=== PATIENT | male | born 1945 | race Caucasian/White ===

== ENCOUNTER 2017-10-07 09:47 | Emergency (ER) | payer MEDICARE, BC ==
[2017-10-07] MEDS ORDERED: Sodium Chloride 0.9% 10 ML Syringe FLUSH PRN (10:11)
[2017-10-07] MEDS ORDERED: Iopamidol 755 Mg/ML 100 ML Bottle IVPUSH ONE (10:15)
[2017-10-07] MEDS ORDERED: Sodium Chloride 0.9% 100 ML IV SCH (10:15)
[2017-10-07] MEDS: Sodium Chloride 0.9% 10 ML Syringe FLUSH PRN ×2 (10:21→11:29)
--- NOTE | 2017-10-07 12:25 | EDM.PDOC ---
ED HPI GENERAL MEDICAL PROBLEM - General Chief Complaint: Respiratory Problem Stated Complaint: SOB Time Seen by Provider: 10/07/17 09:55 Source of Information: Reports: Patient, Family History Limitations: Reports: No Limitations - History of Present Illness INITIAL COMMENTS - FREE TEXT/NARRATIVE: The patient presents with shortness of breath and palpitations. He says this has been going on for a few weeks. 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 They could not proceed with the surgery. They do have a stent in his stomach and duodenum. He has been having palpitations on and off since he got home and he was seen twice for that. He has been having more shortness of breath lately. He has no fever, chills, cough, chest pain or edema in his legs. He does have ascities. His albumin was low and also his Hgb was low. He ws 9.2 at the clinic and he was 7.1 when he left the hospital. 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 Onset: Gradual Duration: Week(s): Severity: Moderate Improves with: Reports: None Worsens with: Reports: None Associated Symptoms: Reports: Shortness of Breath. Denies: Chest Pain, Cough, Fever/Chills, Headaches, Loss of Appetite, Nausea/Vomiting - Related Data Allergies Allergy/AdvReac Type Severity Reaction Status Date / Time Penicillins Allergy Hives Verified 10/07/17 10:01 Home Meds: Home Meds Atenolol 50 mg PO DAILY 10/07/17 [History] Enoxaparin [Lovenox] 80 mg SQ BID 10/07/17 [History] Ferrous Sulfate [Iron] 325 mg PO DAILY 10/07/17 [History] Furosemide [Lasix] 40 mg PO DAILY 10/07/17 [History] Insulin Degludec [Tresiba Flextouch U-100] 0 unit SQ ASDIRECTED 10/07/17 [ History] Lipase/Protease/Amylase [Sara [place]ES 3,000 Unit] 1 each PO TID 10/07/17 [History] Pantoprazole [ProTONIX] 20 mg PO BID 10/07/17 [History] Sennosides [Senna] 1 tab PO BID 10/07/17 [History] atorvaSTATin [Lipitor] 5 mg PO BEDTIME 10/07/17 [History] Past Medical History HEENT History: Reports: Impaired Vision Cardiovascular History: Reports: High Cholesterol, Hypertension, Other (See Below) Other Cardiovascular History: 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 Respiratory History: Reports: SOB Gastrointestinal History: Reports: GERD, Other (See Below) Other Gastrointestinal History: acites Endocrine/Metabolic History: Reports: Diabetes, Type II Hematologic History: Reports: Anticoagulation Therapy, Other (See Below) Other Hematologic History: current cancer patient Oncologic (Cancer) History: Reports: Pancreatic, Prostate Other Oncologic History: sebacceous adrenal CA - Past Surgical History Musculoskeletal Surgical History: Reports: Hip Replacement Social & Family History - Family History Family Medical History: Noncontributory - Tobacco Use Smoking Status *Q: Never Smoker Second Hand Smoke Exposure: No - Caffeine Use Caffeine Use: Reports: None - Recreational Drug Use Recreational Drug Use: No - Living Situation & Occupation Living situation: Reports: Occupation: Retired ED ROS GENERAL - Review of Systems Review Of Systems: See Below Constitutional: Reports: No Symptoms HEENT: Reports: No Symptoms Respiratory: Reports: Shortness of Breath. Denies: Cough Cardiovascular: Reports: No Symptoms Endocrine: Reports: No Symptoms GI/Abdominal: Reports: Other (Distended abdomen) : Reports: No Symptoms Musculoskeletal: Reports: No Symptoms ED EXAM, GENERAL - Physical Exam Exam: See Below Exam Limited By: No Limitations General Appearance: Alert, No Apparent Distress Ears: Normal External Exam Nose: Normal Inspection Head: Atraumatic, Normocephalic Neck: Normal Inspection Respiratory/Chest: No Respiratory Distress, Decreased Breath Sounds Cardiovascular: Regular Rate, Rhythm, No Edema, No Murmur GI/Abdominal: Soft, Non-Tender, No Organomegaly, No Mass, Other (Distended abdomen with a vertical midline incision with no drainage and redness) EKG INTERPRETATION EKG Date: 10/07/17 Time: 10:10 Rhythm: NSR Rate (Beats/Min): 85 Epes: Normal P-Wave: Present QRS: Normal ST-T: Normal QT: Normal EKG Interpretation Comments: Q waves in the inferior leads Course - Vital Signs Last Recorded V/S: Last Vital Signs Temp 97.8 F 10/07/17 09:49 Pulse 86 10/07/17 10:48 Resp 20 10/07/17 10:48 BP 115/82 10/07/17 10:48 Pulse Ox 99 10/07/17 10:48 - Orders/Labs/Meds Orders: Active Orders 24 hr Category Date Time Status Cardiac Monitoring [RC] . DIRECTED Care 10/07/17 10:11 Active EKG 12 Lead [EKG Documentation Completion] [RC] STAT Care 10/07/17 10:10 Active Peripheral IV Care [RC] . DIRECTED Care 10/07/17 10:11 Active Ang Chest [CT] Stat Exams 10/07/17 11:15 Taken Sodium Chloride 0.9% [Normal Saline] 100 ml Med 10/07/17 10:15 Active IV ASDIRECTED Sodium Chloride 0.9% [Saline Flush] Med 10/07/17 10:11 Active 10 ml FLUSH ASDIRECTED PRN Sodium Chloride 0.9% [Saline Flush] Med 10/07/17 10:15 Active 10 ml FLUSH ONETIME PRN Peripheral IV Insertion Adult [OM.PC] Stat Oth 10/07/17 10:11 Ordered Medication Orders Sodium Chloride (Normal Saline) 100 mls @ 75 mls/hr IV ASDIRECTED AMANDA Last Admin: 10/07/17 11:29 Dose: 75 mls/hr Sodium Chloride (Saline Flush) 10 ml FLUSH ASDIRECTED PRN PRN Reason: Keep Vein Open Last Admin: 10/07/17 11:38 Dose: 10 ml Sodium Chloride (Saline Flush) 10 ml FLUSH ONETIME PRN PRN Reason: IV FLUSH Last Admin: 10/07/17 11:29 Dose: 10 ml Admin: 10/07/17 10:21 Dose: 10 ml Labs: Laboratory Tests 10/07/17 10/07/17 10/07/17 Range/Units 10:15 10:15 10:15 WBC 6.13 (4.23-9.07) K/mm3 RBC 3.38 L (4.63-6.08) M/mm3 Hgb 9.3 L (13.7-17.5) gm/L Hct 29.9 L (40.1-51.0) % MCV 88.5 (79.0-92.2) fl MCH 27.5 (25.7-32.2) pg MCHC 31.1 L (32.2-35.5) g/dl RDW Std Deviation 48.4 H (35.1-43.9) fL Plt Count 374 H (163-337) K/mm3 MPV 7.9 L (9.4-12.3) fl Neut % (Auto) 81.4 H (34.0-67.9) % Lymph % (Auto) 9.5 L (21.8-53.1) % Haines % (Auto) 8.5 (5.3-12.2) % Eos % (Auto) 0.2 L (0.8-7.0) Baso % (Auto) 0.2 (0.1-1.2) % Neut # (Auto) 5.00 (1.78-5.38) K/mm3 Lymph # (Auto) 0.58 L (1.32-3.57) K/mm3 Haines # (Auto) 0.52 (0.30-0.82) K/mm3 Eos # (Auto) 0.01 L (0.04-0.54) K/mm3 Baso # (Auto) 0.01 (0.01-0.08) K/mm3 Manual Slide Review Abnormal smear PT 12.0 (9.5-12.1) SECONDS INR 1.10 APTT 38 H (24-31) SECONDS Sodium 135 L (136-145) mEq/L Potassium 3.8 (3.5-5.1) mEq/L Chloride 100 (98-107) mEq/L Carbon Dioxide 27 (21-32) mEq/L Anion Gap 11.8 (5-15) BUN 10 (7-18) mg/dL Creatinine 0.9 (0.7-1.3) mg/dL Est Cr Clr Drug Dosing 72.83 mL/min Estimated GFR (MDRD) > 60 (>60) mL/min BUN/Creatinine Ratio 11.1 L (14-18) Glucose 125 H (83-115) mg/dL Calcium 8.3 L (8.5-10.1) mg/dL Total Bilirubin 0.6 (0.2-1.0) mg/dL AST 24 (15-37) U/L ALT 26 (16-63) U/L Alkaline Phosphatase 174 H (46-116) U/L Troponin I < 0.017 (0.00-0.056) ng/mL NT-Pro-B Natriuret Pep (0-125) pg/mL Total Protein 5.9 L (6.4-8.2) g/dl Albumin 1.9 L (3.4-5.0) g/dl Globulin 4.0 gm/dL Albumin/Globulin Ratio 0.5 L (1-2) Lipase 90 (73-393) U/L 10/07/17 Range/Units 10:15 WBC (4.23-9.07) K/mm3 RBC (4.63-6.08) M/mm3 Hgb (13.7-17.5) gm/L Hct (40.1-51.0) % MCV (79.0-92.2) fl MCH (25.7-32.2) pg MCHC (32.2-35.5) g/dl RDW Std Deviation (35.1-43.9) fL Plt Count (163-337) K/mm3 MPV (9.4-12.3) fl Neut % (Auto) (34.0-67.9) % Lymph % (Auto) (21.8-53.1) % Haines % (Auto) (5.3-12.2) % Eos % (Auto) (0.8-7.0) Baso % (Auto) (0.1-1.2) % Neut # (Auto) (1.78-5.38) K/mm3 Lymph # (Auto) (1.32-3.57) K/mm3 Haines # (Auto) (0.30-0.82) K/mm3 Eos # (Auto) (0.04-0.54) K/mm3 Baso # (Auto) (0.01-0.08) K/mm3 Manual Slide Review PT (9.5-12.1) SECONDS INR APTT (24-31) SECONDS Sodium (136-145) mEq/L Potassium (3.5-5.1) mEq/L Chloride (98-107) mEq/L Carbon Dioxide (21-32) mEq/L Anion Gap (5-15) BUN (7-18) mg/dL Creatinine (0.7-1.3) mg/dL Est Cr Clr Drug Dosing mL/min Estimated GFR (MDRD) (>60) mL/min BUN/Creatinine Ratio (14-18) Glucose (83-115) mg/dL Calcium (8.5-10.1) mg/dL Total Bilirubin (0.2-1.0) mg/dL AST (15-37) U/L ALT (16-63) U/L Alkaline Phosphatase (46-116) U/L Troponin I (0.00-0.056) ng/mL NT-Pro-B Natriuret Pep 1452 H (0-125) pg/mL Total Protein (6.4-8.2) g/dl Albumin (3.4-5.0) g/dl Globulin gm/dL Albumin/Globulin Ratio (1-2) Lipase (73-393) U/L Meds: Medications Generic Name Dose Route Start Last Admin Trade Name Freq PRN Reason Stop Dose Admin Sodium Chloride 100 mls @ 75 mls/hr 10/07/17 10:15 10/07/17 11:29 Normal Saline IV 75 mls/hr ASDIRECTED AMANDA Administration Sodium Chloride 10 ml 10/07/17 10:11 10/07/17 11:38 Saline Flush FLUSH 10 ml ASDIRECTED PRN Administration Keep Vein Open Sodium Chloride 10 ml 10/07/17 10:15 10/07/17 11:29 Saline Flush FLUSH 10 ml ONETIME PRN Administration IV FLUSH Discontinued Medications Generic Name Dose Route Start Last Admin Trade Name Eva PRN Reason Stop Dose Admin Albumin Human 12.5 gm in 50 mls @ 100 mls/hr 10/07/17 13:41 10/07/17 13:53 Flexbumin 25% IV 10/07/17 14:10 250 mls/hr ONETIME ONE Administration Iopamidol 100 ml 10/07/17 10:15 10/07/17 11:29 Isovue-370 (76%) IVPUSH 10/07/17 10:16 80 ml ONETIME ONE Administration - Re-Assessments/Exams Free Text/Narrative Re-Assessment/Exam: 10/07/17 12:28 I ordered an IV saline lock, EKG, CT angio of his chest and labs. 10/07/17 13:37 His WBC is normal. His Hgb is low at 9.3. That is what it was a few days ago. His platelets were a little elevated at 374. His Na was a little low at 135. His glucose was 125. His Alk Phos was elevated at 174. His troponin was negative. His EKG shows a NSR with no acute changes. His BNP was 1452. His total protein was low at 5.9. His albumin was low at 1.9. His lipase was normal. His CT shows no PE. Small bilateral pleural effusions with bibasilar atelectasis. 2 lateral right middle lobe juxtapleural pulmonary nodules. Moderate to large amount of ascities. Severe atrophy of the body and tail of the pancreas. Difficult to determine the presence or abscence of a pancreatic head mass. Probable parapencreatic adenopathy. Cirrhotic liver. Diffuse thickening of the wall of the stomach. Gastroduodenal stent. 1 X 0.9 cm right adrenal mass. I called Dr Quintanilla and it sounds like he is aware of everything on the CT. I asked if it was okay to give him some albumen. He agreed. He is referring him to Dr Cross. The patient is unable to get back to the [facility]. Departure - Departure Time of Disposition: 14:15 Disposition: Home, Self-Care 01 Condition: Good Clinical Impression: Shortness of breath Ascites Qualifiers: Ascites type: malignant Qualified Code(s): R18.0 - Malignant ascites Pancreatic cancer Qualifiers: Pancreatic malignancy location: head of pancreas Qualified Code(s): C25.0 - Malignant neoplasm of head of pancreas - Discharge Information *PRESCRIPTION DRUG MONITORING PROGRAM REVIEWED*: No *COPY OF PRESCRIPTION DRUG MONITORING REPORT IN PATIENT MAR: No Referrals: Geo Quintanilla MD [Primary Care Provider] - 1 Week Forms: ED Department Discharge Additional Instructions: Continue taking your medications. Please return if you are worse. Try to increase your protein if you can. - My Orders Last 24 Hours: My Active Orders 10/07/17 10:10 EKG 12 Lead [EKG Documentation Completion] [RC] STAT 10/07/17 10:11 Cardiac Monitoring [RC] . DIRECTED Peripheral IV Care [RC] . DIRECTED Sodium Chloride 0.9% [Saline Flush] 10 ml FLUSH ASDIRECTED PRN Peripheral IV Insertion Adult [OM.PC] Stat 10/07/17 10:15 Sodium Chloride 0.9% [Normal Saline] 100 ml IV ASDIRECTED Sodium Chloride 0.9% [Saline Flush] 10 ml FLUSH ONETIME PRN 10/07/17 11:15 Ang Chest [CT] Stat - Assessment/Plan Last 24 Hours: My Active Orders 10/07/17 10:10 EKG 12 Lead [EKG Documentation Completion] [RC] STAT 10/07/17 10:11 Cardiac Monitoring [RC] . DIRECTED Peripheral IV Care [RC] . DIRECTED Sodium Chloride 0.9% [Saline Flush] 10 ml FLUSH ASDIRECTED PRN Peripheral IV Insertion Adult [OM.PC] Stat 10/07/17 10:15 Sodium Chloride 0.9% [Normal Saline] 100 ml IV ASDIRECTED Sodium Chloride 0.9% [Saline Flush] 10 ml FLUSH ONETIME PRN 10/07/17 11:15 Ang Chest [CT] Stat
[2017-10-07] MEDS ORDERED: Albumin 25% 12.5 GM/50 ML BAG IV ONE (13:41)
--- NOTE | 2017-10-08 15:05 | CT ---
CT chest Technique: Multiple axial sections through the chest are obtained. Study performed as a pulmonary angiogram protocol. Findings: Pulmonary arteries are well-opacified. No filling defects are seen to indicate pulmonary embolism. Mediastinum and hilar regions show no adenopathy or mass. No pericardial thickening is seen. Minimal right sided pleural effusion is seen with small left-sided pleural effusion. Diffuse ascites seen within the abdomen with findings of cirrhosis within the liver. Stent appears to be present within the antrum of the stomach. Stomach wall is thickened most likely relating to lack of distention. Slight areas of atelectasis and scarring are seen within both posterior lung bases. Slight areas of pleural thickening are noted within the right lung base. No discrete pulmonary nodule is seen as questioned on preliminary report. Impression: 1. No findings of pulmonary embolism. 2. Ascites is seen. Minimal pleural effusions are noted. 3. Cirrhosis of the liver. 4. Stent within the stomach antrum. 5. Areas of scarring and atelectasis within both lung bases. Slight areas of pleural thickening within the right lung base. 5. Area of the pancreas not well seen on current study without oral contrast. Diagnostic code #3 Agree with preliminary report issued by [facility] (report finalized on 10/07/17, 2:25 PM Central Time)
== END 2017-10-07 14:25 | disposition home or self-care (01) ==
LOC: JD.ED 09:47
DX: R06.02 Shortness of breath (principal); R18.0 Malignant ascites; C25.0 Malignant neoplasm of head of pancreas; K74.60 Unspecified cirrhosis of liver; Z88.0 Allergy status to penicillin; Z79.4 Long term (current) use of insulin; Z79.899 Other long term (current) drug therapy; I10 Essential (primary) hypertension; E11.9 Type 2 diabetes mellitus without complications
CPT/HCPCS: 36415; 71275; 80053; 83690; 83880; 84484; 85025; 85610; 85730; 93005; 96374; 99285; J7030; J7050; P9047; Q9967; 93010

== ENCOUNTER 2017-10-20 08:51 | Inpatient (IN) | payer MEDICARE, BC ==
--- NOTE | 2017-10-20 09:15 | EDM.PDOC ---
ED HPI GENERAL MEDICAL PROBLEM - General Chief Complaint: Syncope Stated Complaint: [facility] Time Seen by Provider: 10/20/17 09:09 Source of Information: Reports: Patient History Limitations: Reports: No Limitations - History of Present Illness INITIAL COMMENTS - FREE TEXT/NARRATIVE: 72-year-old male presents to the ED per ambulance after a syncopal event at home this morning. She states she often gets dizzy in the mornings when he first gets up. He did take his Lasix at 6 this morning. She was dizzy on his way to the bathroom this morning and on his way out of the bathroom had a syncopal event where he actually went down hard to the floor. He struck his left lower lip on the doorknob and then was unresponsive for a very short period of time. His responded to him. The embolus was summoned because he was so weak. Patient is suffering from primary cancer of the pancreas which was opened in the [facility] and then closed because of tumor involvement around the hepatic arteries. He is awaiting consultation with Dr. Meehan later this week to discuss chemotherapy program. Weight continues to fall. He is down from 171 pounds to 155 pounds since starting the Lasix. He obviously has gross ascites. Bolus in the room he has paroxysmal atrial fibrillation with a rapid rate up into the 180s. This occurred on 3 occasions while he was in the room. It does not cause him to have any chest pain but he is aware fluttering in his chest. Orthostatic BPs show a blood pressure 107/66 with a heart rate of 113 lying. Sitting was 136/83 with a heart rate of 92. Standing BP was 74/62 with a heart rate of 161. This was back in atrial fibrillation. The only recent changes to medications or been the addition of Lasix about a month ago. Onset: Today Onset Date: 10/20/17 Onset Time: 08:40 Duration: Minutes: Location: Reports: Face (Injury to his left lower lip.), Upper Extremity, Left ( A few minor contusions to his left elbow area.) Quality: Reports: Other Severity: Moderate (Generalized weakness syncopal event because of dizziness.) Improves with: Reports: Rest (And staying supine.) Worsens with: Reports: Movement (Worsens with standing.) Context: Reports: Other (Patient was walking back out of the bathroom when he had a syncopal event and went down to the floor.). Denies: Activity, Exercise, Lifting, Sick Contact, Trauma Associated Symptoms: Reports: Loss of Appetite, Malaise, Other (Early satiety as he feels very full very quickly.). 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: Other (see below) (None.) - Related Data Allergies Allergy/AdvReac Type Severity Reaction Status Date / Time Penicillins Allergy Hives Verified 10/20/17 17:09 Home Meds: Home Meds Atenolol 50 mg PO DAILY 10/07/17 [History] Enoxaparin [Lovenox] 80 mg SQ BID 10/07/17 [History] Ferrous Sulfate [Iron] 325 mg PO DAILY 10/07/17 [History] Furosemide [Lasix] 40 mg PO DAILY 10/07/17 [History] Insulin Degludec [Tresiba Flextouch U-100] 10 unit SQ ASDIRECTED 10/07/17 [ History] Lipase/Protease/Amylase [Creon DR 3,000 Unit] 1 each PO TID 10/07/17 [History] Pantoprazole [ProTONIX] 20 mg PO BID 10/07/17 [History] Sennosides [Senna] 2 tab PO DAILY 10/07/17 [History] atorvaSTATin [Lipitor] 5 mg PO BEDTIME 10/07/17 [History] Aspirin 81 mg PO DAILY 10/20/17 [History] Past Medical History HEENT History: Reports: Impaired Vision Cardiovascular History: Reports: High Cholesterol, Hypertension, Other (See Below) Other Cardiovascular History: 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 Respiratory History: Reports: SOB Gastrointestinal History: Reports: GERD, Other (See Below) Other Gastrointestinal History: acites Endocrine/Metabolic History: Reports: Diabetes, Type II Hematologic History: Reports: Anticoagulation Therapy, Other (See Below) Other Hematologic History: current cancer patient Oncologic (Cancer) History: Reports: Pancreatic, Prostate Other Oncologic History: sebacceous adrenal CA - Past Surgical History Musculoskeletal Surgical History: Reports: Hip Replacement Social & Family History - Family History Family Medical History: Noncontributory - Caffeine Use Caffeine Use: Reports: None - Living Situation & Occupation Living situation: Reports: Occupation: Retired ED ROS GENERAL - Review of Systems Review Of Systems: See Below Constitutional: Reports: Malaise, Weakness, Fatigue, Decreased Appetite, Weight Loss (Sloss 20 pounds in the last month.). Denies: Fever, Chills HEENT: Reports: Glasses (Contusion to his left lower lip.), Other Respiratory: Reports: Shortness of Breath, Cough. Denies: Wheezing, Pleuritic Chest Pain (On minimal exertion), Sputum, Hemoptysis Cardiovascular: Reports: Blood Pressure Problem, Dyspnea on Exertion (States the edema in his lower extremities has gone away since he started Lasix), Edema ( especially this morning and when he gets up in the morning.), Lightheadedness (Mild the last 4-5 days), Orthopnea. Denies: Chest Pain (Occasional nonproductive cough), Claudication (Seems to go up and down but mostly too low) , Palpitations Endocrine: Reports: Fatigue GI/Abdominal: Reports: Abdominal Pain, Decreased Appetite, Other (Early satiety increased abdominal girth). Denies: Constipation (Right upper quadrant epigastric abdominal pain occasionally radiating through to his back), Diarrhea , Difficulty Swallowing, Distension, Flatus, Hematemesis, Hematochezia, Melena : Reports: Frequency Musculoskeletal: Reports: Back Pain (some mild back pain.) Skin: Reports: No Symptoms Neurological: Reports: No Symptoms Psychiatric: Reports: No Symptoms Hematologic/Lymphatic: Reports: No Symptoms Immunologic: Reports: No Symptoms - Physical Exam Exam: See Below Exam Limited By: No Limitations General Appearance: Alert, WD/WN (He is allergic to rigidity answers all questions quite appropriately.), No Apparent Distress, Other (Weight is quite upset.) Eye Exam: Bilateral Eye: Normal Inspection (No jaundice.) Throat/Mouth: Other (He has a superficial laceration to his left outer lower lip. No injury to the inner aspect of lip and no dental injury no injury to the tongue.) Head Exam: Atraumatic, Normocephalic, Other. No: Scalp Abrasions, Scalp Ecchymosis, Scalp Hematoma, Scalp Tenderness, Facial Abrasions, Facial Ecchymosis, Facial Lacerations, Facial Swelling Neck: Normal Inspection, Supple (Superficial laceration over her left lower lip does not need sutures.), Non-Tender, Full Range of Motion. No: Lymphadenopathy (L), Lymphadenopathy (R) Respiratory/Chest: No Respiratory Distress, No Accessory Muscle Use, Respiratory Distress (Mild tachypnea 20/m on examination), Rales Cardiovascular: Normal Peripheral Pulses, No Edema ( 3 times while in the eye was in the room.), No Murmur, No Rub, Irregularly Irregular (He is going in and out of rapid atrial fibrillation up to 180s.) GI/Abdominal: Normal Bowel Sounds, Other (The abdomen is grossly distended. He has a healing midline wound where he had recent open surgery for possible Whipple's procedure which was closed to due to involvement of hepatic arteries from cancer. Primary cancers in his pancreas. Abdomen is soft. It is covered with ecchymoses from use of Lovenox. It is nontender. There is an induration around the umbilicus to the right side of it.) (Male) Exam: No Hernia Neuro Exam (Abbreviated): Alert, Oriented, CN II-XII Intact, Normal Cognition Back Exam: Normal Inspection, Full Range of Motion. No: CVA Tenderness (L), CVA Tenderness (R) Extremities: Other (Superficial contusions to the left elbow. Range of motion is normal. Is showing muscle atrophy of his limbs.). No: Pedal Edema Psychiatric: Normal Affect, Normal Mood Skin Exam: Warm, Dry, Intact, Other (Slight pallor with a galarza color to him.) EKG INTERPRETATION EKG Date: 10/20/17 Time: 09:17 Rhythm: A-Fib (With rate up to 1 85/m) Rate (Beats/Min): 153 Cope: LAD-Left Cope Deviation (-19) P-Wave: Variable (He does go in and out of sinus rhythm.) QRS: Other (Decreased voltage limb leads.) ST-T: Other (There is a re-pole repolarization abnormality related to rate with slight depression feet 2 to V6 and one in aVL tooth and aVF.) QT: Normal EKG Interpretation Comments: Abnormal ECG Course - Vital Signs Last Recorded V/S: Last Vital Signs Temp 37.1 C 10/20/17 16:00 Pulse 104 H 10/20/17 18:00 Resp 25 H 10/20/17 16:00 BP 107/76 10/20/17 18:00 Pulse Ox 91 L 10/20/17 16:00 Orthostatic Blood Pressure [ 74/62 Standing] Orthostatic Blood Pressure [ 136/83 Sitting] Orthostatic Blood Pressure [ 107/66 Supine] - Orders/Labs/Meds Orders: Active Orders 24 hr Category Date Time Status Diltiazem 125 mg Med 10/20/17 09:30 Active Sodium Chloride 0.9% [Normal Saline] 100 ml IV ASDIRECTED Sodium Chloride 0.9% [Normal Saline] 1,000 ml Med 10/20/17 09:15 Active IV ASDIRECTED Medication Orders Aspirin (Aspirin) 81 mg PO DAILY [facility] Enoxaparin Sodium (Lovenox) 60 mg SUBCUT BID [facility] Ferrous Sulfate (Ferrous Sulfate) 325 mg PO DAILY [facility] Furosemide (Lasix) 40 mg PO DAILY [facility] Diltiazem HCl 125 mg/ Sodium (Chloride) 125 mls @ 10 mls/hr IV ASDIRECTED [facility] Last Admin: 10/20/17 10:07 Dose: 10 mg/hr, 10 mls/hr Sodium Chloride (Normal Saline) 1,000 mls @ 125 mls/hr IV ASDIRECTED [facility] Last Admin: 10/20/17 17:36 Dose: 125 mls/hr Infusion: 10/20/17 17:36 Dose: 125 mls/hr Admin: 10/20/17 09:57 Dose: 125 mls/hr Insulin Human Lispro (Humalog) 0 unit SUBCUT QIDACANDBED [facility]; Protocol Last Admin: 10/20/17 17:27 Dose: Not Given Metoprolol Tartrate (Lopressor) 25 mg PO Q12H [facility] Last Admin: 10/20/17 16:18 Dose: 25 mg Metoprolol Tartrate (Lopressor) 5 mg IVPUSH Q6H PRN PRN Reason: HR>100 Pantoprazole Sodium (Protonix) 40 mg PO DAILY [facility] Lipase/Protease/Amylase [Sara Perez 3, 000 Unit] 1 Each Ptom 1 each PO TID [facility] Potassium Chloride (Potassium Chloride Solution) 60 meq PO TID [facility] Last Admin: 10/20/17 16:18 Dose: 60 meq Senna (Senna) 8.6 mg PO BID [facility] Simvastatin (Zocor) 5 mg PO BEDTIME [facility] Labs: Laboratory Tests 10/20/17 10/20/17 10/20/17 Range/Units 09:17 09:43 09:43 WBC 6.36 (4.23-9.07) K/mm3 RBC 3.64 L (4.63-6.08) M/mm3 Hgb 9.7 L (13.7-17.5) gm/L Hct 31.8 L (40.1-51.0) % MCV 87.4 (79.0-92.2) fl MCH 26.6 (25.7-32.2) pg MCHC 30.5 L (32.2-35.5) g/dl RDW Std Deviation 52.7 H (35.1-43.9) fL Plt Count 281 (163-337) K/mm3 MPV 8.4 L (9.4-12.3) fl Neutrophils % (Manual) 79 H (40-60) % Band Neutrophils % 0 (0-10) % Lymphocytes % (Manual) 17 L (20-40) % Atypical Lymphs % 0 % Monocytes % (Manual) 4 (2-10) % Eosinophils % (Manual) 0 L (0.8-7.0) % Basophils % (Manual) 0 L (0.2-1.2) Platelet Estimate Adequate Polychromasia 1+ slight Hypochromasia 1+ slight Poikilocytosis 1+ slight Anisocytosis 1+ slight RBC Morph Comment Not Reportable PT 11.7 (9.5-12.1) SECONDS INR 1.07 Sodium 140 (136-145) mEq/L Potassium 2.6 L (3.5-5.1) mEq/L Chloride 97 L (98-107) mEq/L Carbon Dioxide 35 H (21-32) mEq/L Anion Gap 10.6 (5-15) BUN 12 (7-18) mg/dL Creatinine 1.1 (0.7-1.3) mg/dL Est Cr Clr Drug Dosing 53.35 mL/min Estimated GFR (MDRD) > 60 (>60) mL/min BUN/Creatinine Ratio 10.9 L (14-18) Glucose 145 H (83-115) mg/dL Calcium 8.2 L (8.5-10.1) mg/dL Magnesium 1.8 (1.8-2.4) mg/dl Total Bilirubin 1.0 (0.2-1.0) mg/dL AST 54 H (15-37) U/L ALT 41 (16-63) U/L Alkaline Phosphatase 183 H (46-116) U/L CK-MB (CK-2) 0.6 (0-3.6) ng/ml Troponin I < 0.017 (0.00-0.056) ng/mL C-Reactive Protein 4.6 H* (<1.0) mg/dL NT-Pro-B Natriuret Pep (0-125) pg/mL Total Protein 6.2 L (6.4-8.2) g/dl Albumin 2.1 L (3.4-5.0) g/dl Globulin 4.1 gm/dL Albumin/Globulin Ratio 0.5 L (1-2) 10/20/17 Range/Units 09:43 WBC (4.23-9.07) K/mm3 RBC (4.63-6.08) M/mm3 Hgb (13.7-17.5) gm/L Hct (40.1-51.0) % MCV (79.0-92.2) fl MCH (25.7-32.2) pg MCHC (32.2-35.5) g/dl RDW Std Deviation (35.1-43.9) fL Plt Count (163-337) K/mm3 MPV (9.4-12.3) fl Neutrophils % (Manual) (40-60) % Band Neutrophils % (0-10) % Lymphocytes % (Manual) (20-40) % Atypical Lymphs % % Monocytes % (Manual) (2-10) % Eosinophils % (Manual) (0.8-7.0) % Basophils % (Manual) (0.2-1.2) Platelet Estimate Polychromasia Hypochromasia Poikilocytosis Anisocytosis RBC Morph Comment PT (9.5-12.1) SECONDS INR Sodium (136-145) mEq/L Potassium (3.5-5.1) mEq/L Chloride (98-107) mEq/L Carbon Dioxide (21-32) mEq/L Anion Gap (5-15) BUN (7-18) mg/dL Creatinine (0.7-1.3) mg/dL Est Cr Clr Drug Dosing mL/min Estimated GFR (MDRD) (>60) mL/min BUN/Creatinine Ratio (14-18) Glucose (83-115) mg/dL Calcium (8.5-10.1) mg/dL Magnesium (1.8-2.4) mg/dl Total Bilirubin (0.2-1.0) mg/dL AST (15-37) U/L ALT (16-63) U/L Alkaline Phosphatase (46-116) U/L CK-MB (CK-2) (0-3.6) ng/ml Troponin I (0.00-0.056) ng/mL C-Reactive Protein (<1.0) mg/dL NT-Pro-B Natriuret Pep 752 H (0-125) pg/mL Total Protein (6.4-8.2) g/dl Albumin (3.4-5.0) g/dl Globulin gm/dL Albumin/Globulin Ratio (1-2) Meds: Medications Generic Name Dose Route Start Last Admin Trade Name Freq PRN Reason Stop Dose Admin Aspirin 81 mg 10/21/17 09:00 Aspirin PO DAILY [facility] Enoxaparin Sodium 60 mg 10/20/17 21:00 Lovenox SUBCUT BID [facility] Ferrous Sulfate 325 mg 10/21/17 09:00 Ferrous Sulfate PO DAILY [facility] Furosemide 40 mg 10/21/17 09:00 Lasix PO DAILY [facility] Diltiazem HCl 125 mg/ Sodium 125 mls @ 10 mls/hr 10/20/17 09:30 10/20/17 10: 07 Chloride IV 10 mg/hr ASDIRECTED [facility] 10 mls/hr Administration 10 MG/HR Sodium Chloride 1,000 mls @ 125 mls/hr 10/20/17 09:15 10/20/17 17:36 Normal Saline IV 125 mls/hr ASDIRECTED [facility] Administration Insulin Human Lispro 0 unit 10/20/17 17:00 10/20/17 17:27 Humalog SUBCUT Not Given QIDACANDBED [facility] Protocol Metoprolol Tartrate 25 mg 10/20/17 15:30 10/20/17 16:18 Lopressor PO 25 mg Q12H [facility] Administration Metoprolol Tartrate 5 mg 10/20/17 15:19 Lopressor IVPUSH Q6H PRN HR>100 Pantoprazole Sodium 40 mg 10/21/17 09:00 Protonix PO DAILY [facility] Lipase/Protease/ 1 each 10/20/17 21:00 Amylase [Sara Perez 3, PO 000 Unit] 1 Each TID [facility] Ptom Potassium Chloride 60 meq 10/20/17 16:00 10/20/17 16:18 Potassium Chloride Solution PO 60 meq TID [facility] Administration Senna 8.6 mg 10/20/17 21:00 Senna PO BID [facility] Simvastatin 5 mg 10/20/17 21:00 Zocor PO BEDTIME [facility] Discontinued Medications Generic Name Dose Route Start Last Admin Trade Name Freq PRN Reason Stop Dose Admin Enoxaparin Sodium 75 mg 10/20/17 12:46 10/20/17 13:48 Lovenox SUBCUT 10/20/17 12:47 75 mg ONETIME ONE Administration Potassium Chloride 10 meq/ 100 mls @ 100 mls/hr 10/20/17 12:45 Premix IV ASDIRECTED [facility] Potassium Chloride 10 meq/ 100 mls @ 100 mls/hr 10/20/17 13:50 Premix IV 10/20/17 17:49 Q1H [facility] Potassium Chloride 10 meq/ 100 mls @ 100 mls/hr 10/20/17 13:52 10/20/17 14:20 Premix IV 10/20/17 14:51 100 mls/hr NOW STA Administration Insulin Glargine 8 units 10/20/17 12:51 10/20/17 13:54 Lantus Solostar SUBCUT 10/20/17 12:52 8 units ONETIME ONE Administration Pantoprazole Sodium 40 mg 10/21/17 12:54 10/20/17 13:49 Protonix PO 10/21/17 12:55 40 mg ONETIME ONE Administration Pantoprazole Sodium 40 mg 10/20/17 13:15 10/20/17 13:53 Protonix PO Not Given DAILY [facility] - Radiology Interpretation Free Text/Narrative:: 72-year-old male presents the ED after a syncopal event this morning. Eos is a bit dizzy when he stands up first thing in the morning. He did take his Lasix at 6 this morning. States he made it to the bathroom although he is quite dizzy. On his way out of the bathroom he expressed Whitman to a syncopal event and he went down to the floor. He struck his left lower lip on the doorknob with superficial lacerations to this area that does not require sutures. He has some minor contusions to his left elbow area but suffered no other bony injuries. Patient has obvious gross ascites from primary pancreatic cancer which was diagnosed over a month ago. He was open and closed at the [facility] because of involvement of the hepatic arteries from pancreatic tumor. He is awaiting consultation with Dr. Meehan oncologist this week at [facility] to discuss chemotherapy options. He is to lose weight. He went in and out of rapid atrial fibrillation in the exam room up to 1 85/m. BP is on average 116 systolic. We'll try low-dose diltiazem at 10 mg per hour. He may well have to go on digoxin to control rate as his blood pressure tends to run very low due to current medications and continued weight loss. He has early satiety as he gets full immediately due to the ascites and pancreatic mass. Routine labs to be done. - Re-Assessments/Exams Free Text/Narrative Re-Assessment/Exam: 10/20/17 12:31 Labs are back. White count 6.36. Differential 79% neutrophils and no bands. Hemoglobin is low at 9.7 with hematocrit of 31.8. Platelet count is 281,000. PT is 11.7 with an INR of 1.07. Sodium is 140. Potassium is low at 2.6. Chloride is 97. Bicarbonate is 35. Anion gap is 10.6. BUN is 12 with a creatinine of 1.1. GFR is greater than 60. Glucose 145 with a calcium of 8.2. Magnesium is 1.8. Total bilirubin is 1.0. AST is 54 with an ALT of 41. Alkaline phosphatase mildly elevated 183. CK-MB fraction is 0.6. Troponin I is less than 0.017. C-reactive protein is elevated at 4.6. BNP is elevated at 752. 10/20/17 13:[address] German integration director hospitalist and she will see the patient in the ED with a view to admission to the ICU because he is continuing on Cardizem drip Seems to the most part kept his proximal atrial fibrillation in control. Problem is how to manage it long-term as his blood pressure remains very low and he is already in significant congestive failure. Departure - Departure Time of Disposition: 14:30 Disposition: Admitted As Inpatient 67 Condition: Poor Clinical Impression: Pancreatic cancer metastasized to liver, Paroxysmal atrial fibrillation with rapid ventricular response, Ascites, malignant, Hypokalemia due to inadequate potassium intake Congestive heart failure Qualifiers: Heart failure type: unspecified Heart failure chronicity: acute Qualified Code( s): I50.9 - Heart failure, unspecified Anemia Qualifiers: Anemia type: unspecified type Qualified Code(s): D64.9 - Anemia, unspecified - Discharge Information *PRESCRIPTION DRUG MONITORING PROGRAM REVIEWED*: Not Applicable *COPY OF PRESCRIPTION DRUG MONITORING REPORT IN PATIENT MAR: Not Applicable - My Orders Last 24 Hours: My Active Orders 10/20/17 09:15 Sodium Chloride 0.9% [Normal Saline] 1,000 ml IV ASDIRECTED 10/20/17 09:30 Diltiazem 125 mg Sodium Chloride 0.9% [Normal Saline] 100 ml IV ASDIRECTED - Assessment/Plan Last 24 Hours: My Active Orders 10/20/17 09:15 Sodium Chloride 0.9% [Normal Saline] 1,000 ml IV ASDIRECTED 10/20/17 09:30 Diltiazem 125 mg Sodium Chloride 0.9% [Normal Saline] 100 ml IV ASDIRECTED
[2017-10-20] MEDS: Sodium Chloride 0.9% 1,000 ML IV SCH ×2 (09:57→17:36)
[2017-10-20] MEDS: Diltiazem 125 MG in Sodium Chloride 0.9% 100 ML IV SCH (10:07)
--- NOTE | 2017-10-20 10:15 | CR ---
Chest: Portable view of the chest was obtained. Comparison: Prior chest x-ray of 09/11/[address] of 10/07/17. Diaphragms are elevated most likely due to poor inspiratory effort or possibly ascites. Right-sided infusion catheter is seen. Heart size and mediastinum are normal. Lungs are clear. Bony structures are grossly intact. Impression: 1. Diaphragms elevated possibly due to poor inspiratory effort or elevated due to ascites. 2. Nothing acute is otherwise seen on portable chest x-ray. Diagnostic code #2
[2017-10-20] MEDS ORDERED: Potassium Chloride 10 MEQ in Premix Bag 1 BAG IV SCH ×2 (12:45→13:50)
[2017-10-20] MEDS ORDERED: Enoxaparin 80 MG/0.8 ML Syringe SUBCUT ONE (12:46)
[2017-10-20] MEDS ORDERED: Insulin Glargine,Human Rec. Analog 100 Units/ML 3 ML Pen SUBCUT ONE (12:51)
[2017-10-20] MEDS ORDERED: Pantoprazole 40 MG Tab.CR PO SCH (13:15)
[2017-10-20] MEDS ORDERED: Potassium Chloride 10 MEQ in Premix Bag 1 BAG IV STA (13:52)
--- NOTE | 2017-10-20 15:12 | PCM.HP ---
H&P History of Present Illness - General Date of Service: 10/20/17 Admit Problem/Dx: Admission Diagnosis/Problem Admission Diagnosis/Problem Hypokalemia Source of Information: Patient, Provider History Limitations: Reports: No Limitations - History of Present Illness Initial Comments - Free Text/Narative: 72 year old male with symptomatic A fib with RVR, hypotensive, dizzy with subsequent syncopal episode presents. This is associated with dehydration, weight loss resulting from loss of appetite. He has newly diagnosed pancreatic cancer. He had been seen at the [facility] recently. A clinic visit has been scheduled with Dr Meehan. 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 He is on Lovenox which has required adjustment of his home dose as a result of weight loss. The patient has been on Lasix for control of edema/ascites. he has not been on a potassium replacement. He presents with hypokalemia and requires aggressive replacement. Onset of Symptoms: Reports: Sudden Symptom Onset Date: 10/16/17 Duration of Symptoms: Reports: Day(s):, Getting Worse Location: Reports: Generalized Improves with: Reports: Medication Worsens with: Reports: Movement Associated Symptoms: Reports: Shortness of Breath, Syncope, Weakness - Related Data Allergies/Adverse Reactions: Allergies Allergy/AdvReac Type Severity Reaction Status Date / Time Penicillins Allergy Hives Verified 10/20/17 17:09 Home Medications: Home Meds Atenolol 50 mg PO DAILY 10/07/17 [History] Enoxaparin [Lovenox] 80 mg SQ BID 10/07/17 [History] Ferrous Sulfate [Iron] 325 mg PO DAILY 10/07/17 [History] Furosemide [Lasix] 40 mg PO DAILY 10/07/17 [History] Insulin Degludec [Tresiba Flextouch U-100] 10 unit SQ ASDIRECTED 10/07/17 [ History] Lipase/Protease/Amylase [Sara [place]ES 3,000 Unit] 1 each PO TID 10/07/17 [History] Pantoprazole [ProTONIX] 20 mg PO BID 10/07/17 [History] Sennosides [Senna] 2 tab PO DAILY 10/07/17 [History] atorvaSTATin [Lipitor] 5 mg PO BEDTIME 10/07/17 [History] Aspirin 81 mg PO DAILY 10/20/17 [History] Past Medical History HEENT History: Reports: Impaired Vision Cardiovascular History: Reports: High Cholesterol, Hypertension, Other (See Below) Other Cardiovascular History: 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 Respiratory History: Reports: SOB Gastrointestinal History: Reports: GERD, Other (See Below) Other Gastrointestinal History: acites Endocrine/Metabolic History: Reports: Diabetes, Type II Hematologic History: Reports: Anticoagulation Therapy, Other (See Below) Other Hematologic History: current cancer patient Oncologic (Cancer) History: Reports: Pancreatic, Prostate Other Oncologic History: sebacceous adrenal CA - Past Surgical History Musculoskeletal Surgical History: Reports: Hip Replacement Social & Family History - Family History Family Medical History: Noncontributory - Tobacco Use Smoking Status *Q: Former Smoker Used Tobacco, but Quit: Yes Month/Year Tobacco Last Used: 02/1991 - Caffeine Use Caffeine Use: Reports: None - Recreational Drug Use Recreational Drug Use: No - Living Situation & Occupation Living situation: Reports: Occupation: Retired H&P Review of Systems - Review of Systems: Review Of Systems: See Below General: Reports: Malaise, Weakness, Fatigue, Decreased Appetite, Weight Loss HEENT: Reports: No Symptoms Pulmonary: Reports: Shortness of Breath Cardiovascular: Reports: Palpitations, Lightheadedness, Syncope Gastrointestinal: Reports: No Symptoms Genitourinary: Reports: No Symptoms Musculoskeletal: Reports: No Symptoms Skin: Reports: No Symptoms Psychiatric: Reports: No Symptoms Neurological: Reports: No Symptoms Hematologic/Lymphatic: Reports: No Symptoms Immunologic: Reports: No Symptoms Exam - Exam Exam: See Below - Vital Signs Vital Signs: Last Vital Signs Temp 37.0 C 10/20/17 09:00 Pulse 177 H 10/20/17 10:10 Resp 18 10/20/17 09:00 BP 113/89 10/20/17 10:10 Pulse Ox 96 10/20/17 09:00 Orthostatic Blood Pressure [ 74/62 Standing] Orthostatic Blood Pressure [ 136/83 Sitting] Orthostatic Blood Pressure [ 107/66 Supine] Weight: 61.235 kg - Exam Quality Assessment: Supplemental Oxygen General: Cooperative HEENT: EOMI, Nares Patent, Normal Nasal Septum, Pupils Equal, Pupils Reactive, PERRLA Neck: Trachea Midline Lungs: Normal Respiratory Effort Cardiovascular: Regular Rate, Irregular Rhythm, Tachycardia GI/Abdominal Exam: Normal Bowel Sounds, Soft, Non-Tender, No Organomegaly, No Distention (Male) Exam: Deferred Rectal (Males) Exam: Deferred Back Exam: Normal Inspection Extremities: Normal Inspection, Non-Tender, Normal Capillary Refill - Patient Data Lab Results Last 24 hrs: Laboratory Results - last 24 hr 10/20/17 10/20/17 10/20/17 Range/Units 09:17 09:43 09:43 WBC 6.36 (4.23-9.07) K/mm3 RBC 3.64 L (4.63-6.08) M/mm3 Hgb 9.7 L (13.7-17.5) gm/L Hct 31.8 L (40.1-51.0) % MCV 87.4 (79.0-92.2) fl MCH 26.6 (25.7-32.2) pg MCHC 30.5 L (32.2-35.5) g/dl RDW Std Deviation 52.7 H (35.1-43.9) fL Plt Count 281 (163-337) K/mm3 MPV 8.4 L (9.4-12.3) fl Neutrophils % (Manual) 79 H (40-60) % Band Neutrophils % 0 (0-10) % Lymphocytes % (Manual) 17 L (20-40) % Atypical Lymphs % 0 % Monocytes % (Manual) 4 (2-10) % Eosinophils % (Manual) 0 L (0.8-7.0) % Basophils % (Manual) 0 L (0.2-1.2) Platelet Estimate Adequate Polychromasia 1+ slight Hypochromasia 1+ slight Poikilocytosis 1+ slight Anisocytosis 1+ slight RBC Morph Comment Not Reportable PT 11.7 (9.5-12.1) SECONDS INR 1.07 Sodium 140 (136-145) mEq/L Potassium 2.6 L (3.5-5.1) mEq/L Chloride 97 L (98-107) mEq/L Carbon Dioxide 35 H (21-32) mEq/L Anion Gap 10.6 (5-15) BUN 12 (7-18) mg/dL Creatinine 1.1 (0.7-1.3) mg/dL Est Cr Clr Drug Dosing 53.35 mL/min Estimated GFR (MDRD) > 60 (>60) mL/min BUN/Creatinine Ratio 10.9 L (14-18) Glucose 145 H (83-115) mg/dL Calcium 8.2 L (8.5-10.1) mg/dL Magnesium 1.8 (1.8-2.4) mg/dl Total Bilirubin 1.0 (0.2-1.0) mg/dL AST 54 H (15-37) U/L ALT 41 (16-63) U/L Alkaline Phosphatase 183 H (46-116) U/L CK-MB (CK-2) 0.6 (0-3.6) ng/ml Troponin I < 0.017 (0.00-0.056) ng/mL C-Reactive Protein 4.6 H* (<1.0) mg/dL NT-Pro-B Natriuret Pep (0-125) pg/mL Total Protein 6.2 L (6.4-8.2) g/dl Albumin 2.1 L (3.4-5.0) g/dl Globulin 4.1 gm/dL Albumin/Globulin Ratio 0.5 L (1-2) 10/20/17 Range/Units 09:43 WBC (4.23-9.07) K/mm3 RBC (4.63-6.08) M/mm3 Hgb (13.7-17.5) gm/L Hct (40.1-51.0) % MCV (79.0-92.2) fl MCH (25.7-32.2) pg MCHC (32.2-35.5) g/dl RDW Std Deviation (35.1-43.9) fL Plt Count (163-337) K/mm3 MPV (9.4-12.3) fl Neutrophils % (Manual) (40-60) % Band Neutrophils % (0-10) % Lymphocytes % (Manual) (20-40) % Atypical Lymphs % % Monocytes % (Manual) (2-10) % Eosinophils % (Manual) (0.8-7.0) % Basophils % (Manual) (0.2-1.2) Platelet Estimate Polychromasia Hypochromasia Poikilocytosis Anisocytosis RBC Morph Comment PT (9.5-12.1) SECONDS INR Sodium (136-145) mEq/L Potassium (3.5-5.1) mEq/L Chloride (98-107) mEq/L Carbon Dioxide (21-32) mEq/L Anion Gap (5-15) BUN (7-18) mg/dL Creatinine (0.7-1.3) mg/dL Est Cr Clr Drug Dosing mL/min Estimated GFR (MDRD) (>60) mL/min BUN/Creatinine Ratio (14-18) Glucose (83-115) mg/dL Calcium (8.5-10.1) mg/dL Magnesium (1.8-2.4) mg/dl Total Bilirubin (0.2-1.0) mg/dL AST (15-37) U/L ALT (16-63) U/L Alkaline Phosphatase (46-116) U/L CK-MB (CK-2) (0-3.6) ng/ml Troponin I (0.00-0.056) ng/mL C-Reactive Protein (<1.0) mg/dL NT-Pro-B Natriuret Pep 752 H (0-125) pg/mL Total Protein (6.4-8.2) g/dl Albumin (3.4-5.0) g/dl Globulin gm/dL Albumin/Globulin Ratio (1-2) Result Diagrams: 10/20/17 09:43 10/20/17 09:43 - Problem List (1) Atrial fibrillation with RVR SNOMED Code(s): 451502208449192 ICD Code: I48.91 - UNSPECIFIED ATRIAL FIBRILLATION Status: Acute Current Visit: Yes (2) Anemia SNOMED Code(s): 175476721 ICD Code: D64.9 - ANEMIA, UNSPECIFIED Status: Acute Current Visit: No Qualifiers: Anemia type: unspecified type Qualified Code(s): D64.9 - Anemia, unspecified (3) Ascites SNOMED Code(s): 565015484 ICD Code: R18.8 - OTHER ASCITES Status: Acute Current Visit: No Qualifiers: Ascites type: malignant Qualified Code(s): R18.0 - Malignant ascites (4) Dizziness SNOMED Code(s): 253353059, 005866024 ICD Code: R42 - DIZZINESS AND GIDDINESS Status: Acute Current Visit: No (5) Hypokalemia due to inadequate potassium intake SNOMED Code(s): 97782895 ICD Code: E87.6 - HYPOKALEMIA Status: Acute Current Visit: No (6) Hypomagnesemia SNOMED Code(s): 955324979 ICD Code: E83.42 - HYPOMAGNESEMIA Status: Acute Current Visit: No (7) Intermittent palpitations SNOMED Code(s): 292370137 ICD Code: R00.2 - PALPITATIONS Status: Acute Current Visit: No (8) Pancreatic cancer SNOMED Code(s): 456429474 ICD Code: C25.9 - MALIGNANT NEOPLASM OF PANCREAS, UNSPECIFIED Status: Acute Current Visit: No Qualifiers: Pancreatic malignancy location: head of pancreas Qualified Code(s): C25.0 - Malignant neoplasm of head of pancreas (9) Shortness of breath SNOMED Code(s): 962194212 ICD Code: R06.02 - SHORTNESS OF BREATH Status: Acute Current Visit: No Problem List Initiated/Reviewed/Updated: Yes Orders Last 24hrs: Active Orders 24 hr Category Date Time Status Patient Status [ADT] Routine ADT 10/20/17 14:34 Active EKG Documentation Completion [RC] STAT Care 10/20/17 09:17 Active Diltiazem 125 mg Med 10/20/17 09:30 Active Sodium Chloride 0.9% [Normal Saline] 100 ml IV ASDIRECTED Pantoprazole [ProTONIX] Med 10/20/17 13:15 Active 40 mg PO DAILY Pantoprazole [ProTONIX] Med 10/21/17 12:54 Once 40 mg PO ONETIME ONE Sodium Chloride 0.9% [Normal Saline] 1,000 ml Med 10/20/17 09:15 Active IV ASDIRECTED Medication Orders Diltiazem HCl 125 mg/ Sodium (Chloride) 125 mls @ 10 mls/hr IV ASDIRECTED AMANDA Last Admin: 10/20/17 10:07 Dose: 10 mg/hr, 10 mls/hr Sodium Chloride (Normal Saline) 1,000 mls @ 125 mls/hr IV ASDIRECTED AMANDA Last Admin: 10/20/17 09:57 Dose: 125 mls/hr Pantoprazole Sodium (Protonix) 40 mg PO ONETIME ONE Stop: 10/21/17 12:55 Last Admin: 10/20/17 13:49 Dose: 40 mg Pantoprazole Sodium (Protonix) 40 mg PO DAILY [facility] Last Admin: 10/20/17 13:53 Dose: Not Given Assessment/Plan Comment:: Impression: A Fib with RVR Syncopal Dehydration Anemia Pancreatic cancer Portal vein thrombus on Lovenox Chronic HLD HTN Diabetes mellitus type 2 Prostate cancer GERD Plan: ICU Cardizem gtt BB therapy Continue Lovenox Ischemic protocol 2 D echo Holter monitor at DC DVT/GI prophylaxis Full code
[2017-10-20] MEDS ORDERED: Metoprolol Tartrate 5 MG/5 ML SDV IVPUSH PRN (15:19)
[2017-10-20] MEDS: Metoprolol Tartrate 25 MG Tab PO SCH (16:18)
[2017-10-20] MEDS: Potassium Chloride 10% 20 MEQ/15 ML Soln 15 ML UD Cup PO SCH ×2 (16:18→20:48)
[2017-10-20] MEDS: Insulin Lispro 100 Unit/ML 3 ML KwikPen SUBCUT SCH ×2 (17:27→22:20)
[2017-10-20] MEDS: Simvastatin 10 MG Tab PO SCH (20:48)
[2017-10-20] MEDS: Enoxaparin 60 MG/0.6 ML Syringe SUBCUT SCH (20:48)
[2017-10-20] MEDS: PROTEASE PO SCH (20:49)
[2017-10-20] MEDS: Sennosides 8.6 MG Tab PO SCH (20:49)
[2017-10-20] MEDS: LIPASE PO SCH (20:49)
[2017-10-20] MEDS: AMYLASE PO SCH (20:49)
[2017-10-21] MEDS: Diltiazem 125 MG in Sodium Chloride 0.9% 100 ML IV SCH (00:54)
[2017-10-21] MEDS: Sodium Chloride 0.9% 1,000 ML IV SCH (00:55)
[2017-10-21] MEDS: Metoprolol Tartrate 25 MG Tab PO SCH ×4 (04:49→20:54)
[2017-10-21] MEDS: Insulin Lispro 100 Unit/ML 3 ML KwikPen SUBCUT SCH ×4 (06:06→21:18)
--- NOTE | 2017-10-21 08:43 | CR ---
Chest: Two views of the chest were obtained. Comparison: Prior chest x-ray of 10/20/17 Minimal pleural effusions are seen on both sides. Right-sided infusion catheter is seen. Heart size is normal. Tortuous thoracic aorta is seen. Lungs otherwise are clear. Surgical clips are noted within the abdomen. Stent also noted within the upper abdomen. Impression: 1. Minimal bilateral pleural effusions. 2. Other incidental findings. Diagnostic code #3
[2017-10-21] MEDS: Enoxaparin 60 MG/0.6 ML Syringe SUBCUT SCH ×2 (11:14→20:58)
[2017-10-21] MEDS: Potassium Chloride 10% 20 MEQ/15 ML Soln 15 ML UD Cup PO SCH ×3 (11:14→20:51)
[2017-10-21] MEDS: Ferrous Sulfate 325 MG Tab PO SCH (11:15)
[2017-10-21] MEDS: Aspirin 81 MG Tab.Chew PO SCH (11:16)
[2017-10-21] MEDS: Furosemide 20 MG Tab PO SCH (11:16)
[2017-10-21] MEDS: Sennosides 8.6 MG Tab PO SCH ×2 (11:17→20:53)
[2017-10-21] MEDS: Pantoprazole 40 MG Tab.CR PO SCH (11:17)
[2017-10-21] MEDS ORDERED: CREON 12000 UNIT PO PRN (11:44)
[2017-10-21] MEDS: AMYLASE PO SCH ×2 (12:21→17:41)
[2017-10-21] MEDS: LIPASE PO SCH ×2 (12:21→17:41)
[2017-10-21] MEDS: PROTEASE PO SCH ×2 (12:21→17:41)
[2017-10-21] MEDS ORDERED: Pantoprazole 40 MG Tab.CR PO ONE (12:54)
--- NOTE | 2017-10-21 13:29 | PCM.PN ---
- General Info Date of Service: 10/21/17 Admission Dx/Problem (Free Text): Admission Diagnosis/Problem Admission Diagnosis/Problem Hypokalemia Subjective Update: Follow Up Functional Status: Reports: Pain Controlled, Tolerating Diet, Ambulating, Urinating. Denies: New Symptoms - Review of Systems General: Denies: Fever, Weakness, Fatigue, Malaise, Chills HEENT: Reports: No Symptoms Pulmonary: Denies: Shortness of Breath Cardiovascular: Denies: Chest Pain, Palpitations, Dyspnea on Exertion, Lightheadedness Gastrointestinal: Denies: Abdominal Pain, Nausea, Vomiting Genitourinary: Reports: No Symptoms Musculoskeletal: Reports: No Symptoms Skin: Reports: No Symptoms Neurological: Denies: Confusion, Difficulty Walking, Weakness, Gait Disturbance Psychiatric: Denies: Depression, Anxiety, Agitation, Hallucinations Systems Review Comment:: No overnight or acute issues. His heart rate is now fully controlled. He has no complaints. His electrolytes have improved but still low. His Hgb level dropped to 8.1. No report or active bleeding or rectal bleed. - Patient Data Vitals - Most Recent: Last Vital Signs Temp 36.7 C 10/21/17 12:00 Pulse 90 10/21/17 12:00 Resp 15 10/21/17 12:00 BP 136/94 H 10/21/17 12:00 Pulse Ox 95 10/21/17 12:00 Orthostatic Blood Pressure [ 74/62 Standing] Orthostatic Blood Pressure [ 136/83 Sitting] Orthostatic Blood Pressure [ 107/66 Supine] Weight - Most Recent: 61.235 kg I&O - Last 24 Hours: Intake & Output 10/20/17 10/21/17 10/21/17 22:59 06:59 14:59 Intake Total 180 2091 0 Output Total 150 Balance 30 2091 0 Lab Results Last 24 Hours: Laboratory Results - last 24 hr 10/20/17 10/20/17 10/21/17 Range/Units 17:23 22:16 04:50 WBC 4.69 (4.23-9.07) K/mm3 RBC 3.10 L (4.63-6.08) M/mm3 Hgb 8.1 L (13.7-17.5) gm/L Hct 27.6 L (40.1-51.0) % MCV 89.0 (79.0-92.2) fl MCH 26.1 (25.7-32.2) pg MCHC 29.3 L (32.2-35.5) g/dl RDW Std Deviation 54.6 H (35.1-43.9) fL Plt Count 205 (163-337) K/mm3 MPV 8.8 L (9.4-12.3) fl Neut % (Auto) 66.7 (34.0-67.9) % Lymph % (Auto) 22.0 (21.8-53.1) % [place] % (Auto) 10.0 (5.3-12.2) % Eos % (Auto) 0.9 (0.8-7.0) Baso % (Auto) 0.4 (0.1-1.2) % Neut # (Auto) 3.13 (1.78-5.38) K/mm3 Lymph # (Auto) 1.03 L (1.32-3.57) K/mm3 [place] # (Auto) 0.47 (0.30-0.82) K/mm3 Eos # (Auto) 0.04 (0.04-0.54) K/mm3 Baso # (Auto) 0.02 (0.01-0.08) K/mm3 Manual Slide Review Abnormal smear Sodium (136-145) mEq/L Potassium (3.5-5.1) mEq/L Chloride (98-107) mEq/L Carbon Dioxide (21-32) mEq/L Anion Gap (5-15) BUN (7-18) mg/dL Creatinine (0.7-1.3) mg/dL Est Cr Clr Drug Dosing mL/min Estimated GFR (MDRD) (>60) mL/min BUN/Creatinine Ratio (14-18) Glucose (83-115) mg/dL POC Glucose 142 H 177 H (83-110) mg/dL Calcium (8.5-10.1) mg/dL Magnesium (1.8-2.4) mg/dl Troponin I (0.00-0.056) ng/mL C-Reactive Protein (<1.0) mg/dL 10/21/17 10/21/17 10/21/17 Range/Units 04:50 06:00 12:23 WBC (4.23-9.07) K/mm3 RBC (4.63-6.08) M/mm3 Hgb (13.7-17.5) gm/L Hct (40.1-51.0) % MCV (79.0-92.2) fl MCH (25.7-32.2) pg MCHC (32.2-35.5) g/dl RDW Std Deviation (35.1-43.9) fL Plt Count (163-337) K/mm3 MPV (9.4-12.3) fl Neut % (Auto) (34.0-67.9) % Lymph % (Auto) (21.8-53.1) % [place] % (Auto) (5.3-12.2) % Eos % (Auto) (0.8-7.0) Baso % (Auto) (0.1-1.2) % Neut # (Auto) (1.78-5.38) K/mm3 Lymph # (Auto) (1.32-3.57) K/mm3 [place] # (Auto) (0.30-0.82) K/mm3 Eos # (Auto) (0.04-0.54) K/mm3 Baso # (Auto) (0.01-0.08) K/mm3 Manual Slide Review Sodium 141 (136-145) mEq/L Potassium 3.4 L (3.5-5.1) mEq/L Chloride 104 (98-107) mEq/L Carbon Dioxide 33 H (21-32) mEq/L Anion Gap 7.4 (5-15) BUN 14 (7-18) mg/dL Creatinine 1.0 (0.7-1.3) mg/dL Est Cr Clr Drug Dosing 58.68 mL/min Estimated GFR (MDRD) > 60 (>60) mL/min BUN/Creatinine Ratio 14.0 (14-18) Glucose 119 H (83-115) mg/dL POC Glucose 119 H 150 H (83-110) mg/dL Calcium 7.6 L (8.5-10.1) mg/dL Magnesium 1.7 L (1.8-2.4) mg/dl Troponin I 0.034 (0.00-0.056) ng/mL C-Reactive Protein 4.2 H* (<1.0) mg/dL Med Orders - Current: Current Medications Aspirin (Aspirin) 81 mg PO DAILY [facility]AN[facility] Last Admin: 10/21/17 11:16 Dose: 81 mg Enoxaparin Sodium (Lovenox) 60 mg SUBCUT BID [facility] Last Admin: 10/21/17 11:14 Dose: 60 mg Ferrous Sulfate (Ferrous Sulfate) 325 mg PO DAILY [facility] Last Admin: 10/21/17 11:15 Dose: 325 mg Furosemide (Lasix) 40 mg PO DAILY [facility] Last Admin: 10/21/17 11:16 Dose: 40 mg Sodium Chloride (Normal Saline) 1,000 mls @ 125 mls/hr IV ASDIRECTED [facility] Last Admin: 10/21/17 00:55 Dose: 125 mls/hr Insulin Human Lispro (Humalog) 0 unit SUBCUT QIDACANDBED [facility]; Protocol Last Admin: 10/21/17 12:46 Dose: 1 unit Metoprolol Tartrate (Lopressor) 5 mg IVPUSH Q6H PRN PRN Reason: HR>100 Metoprolol Tartrate (Lopressor) 25 mg PO TID [facility] Last Admin: 10/21/17 11:18 Dose: 25 mg Pantoprazole Sodium (Protonix) 40 mg PO DAILY [facility] Last Admin: 10/21/17 11:17 Dose: 40 mg Lipase/Protease/Amylase [Creon 12, 000 Unit] Ptom 0 each PO TIDMEALS [facility] Creon 15465 Unit (Caps Ptom) 0 each PO DAILY PRN PRN Reason: SNACK Potassium Chloride (Potassium Chloride Solution) 60 meq PO TID [facility] Last Admin: 10/21/17 11:14 Dose: 60 meq Senna (Senna) 8.6 mg PO BID [facility] Last Admin: 10/21/17 11:17 Dose: 8.6 mg Simvastatin (Zocor) 5 mg PO BEDTIME [facility] Last Admin: 10/20/17 20:48 Dose: 5 mg Discontinued Medications Enoxaparin Sodium (Lovenox) 75 mg SUBCUT ONETIME ONE Stop: 10/20/17 12:47 Last Admin: 10/20/17 13:48 Dose: 75 mg Diltiazem HCl 125 mg/ Sodium (Chloride) 125 mls @ 10 mls/hr IV ASDIRECTED [facility] Last Admin: 10/21/17 00:54 Dose: 10 mg/hr, 10 mls/hr Potassium Chloride 10 meq/ (Premix) 100 mls @ 100 mls/hr IV ASDIRECTED [facility] Potassium Chloride 10 meq/ (Premix) 100 mls @ 100 mls/hr IV Q1H [facility]ANDA Stop: 10/20/17 17:49 Last Admin: 10/20/17 20:47 Dose: Not Given Potassium Chloride 10 meq/ (Premix) 100 mls @ 100 mls/hr IV NOW STA Stop: 10/20/17 14:51 Last Admin: 10/20/17 14:20 Dose: 100 mls/hr Insulin Glargine (Lantus Solostar) 8 units SUBCUT ONETIME ONE Stop: 10/20/17 12:52 Last Admin: 10/20/17 13:54 Dose: 8 units Metoprolol Tartrate (Lopressor) 25 mg PO Q12H [facility] Last Admin: 10/21/17 04:49 Dose: 25 mg Pantoprazole Sodium (Protonix) 40 mg PO ONETIME ONE Stop: 10/21/17 12:55 Last Admin: 10/20/17 13:49 Dose: 40 mg Pantoprazole Sodium (Protonix) 40 mg PO DAILY [facility] Last Admin: 10/20/17 13:53 Dose: Not Given Lipase/Protease/Amylase [Sara Perez 3, 000 Unit] 1 Each Ptom 1 each PO TID [facility] Last Admin: 10/21/17 12:21 Dose: 1 each - Exam Quality Assessment: No: Supplemental Oxygen General: Alert, Oriented, Cooperative, No Acute Distress, Mild Distress HEENT: Pupils Equal, Pupils Reactive, EOMI, Mucous Membr. Moist/[place] Neck: Supple, Trachea Midline, No JVD, No Thyromegaly Lungs: Clear to Auscultation, Normal Respiratory Effort Cardiovascular: No Murmurs, Irregular Rhythm GI/Abdominal Exam: Normal Bowel Sounds, Soft, Non-Tender, No Organomegaly, No Abnormal Bruit, No Mass, Distended, Other. No: Guarding (abdominal scars), Rigid, Rebound (Male) Exam: Deferred Back Exam: Normal Inspection, Decreased Range of Motion Extremities: Normal Inspection, Normal Range of Motion, Non-Tender, No Pedal Edema, Normal Capillary Refill Peripheral Pulses: 2+: Dorsalis Pedis (L), Dorsalis Pedis (R) Skin: Warm, Dry, Intact Neurological: No New Focal Deficit Psy/Mental Status: Alert, Normal Affect, Normal Mood - Problem List Review Problem List Initiated/Reviewed/Updated: Yes - My Orders Last 24 Hours: My Active Orders 10/21/17 11:44 Patient's Own Medication [Ptom] 0 each PO DAILY PRN - Plan Plan:: Assessment/Plan: Acute: S/p A Fib with RVR - HR in the 80s and off drip - HR now controlled with Metoprolol 25 mg po TID - Lovenox SubQ for stroke prophylaxis S/p Syncopal - 2/2 Above - CXR benign - 2D echo pending S/p Dehydration S/p Orthostatic Hypotension - 2/2 Volume Depleted - With the following BPs: Standing 74/62 mmHg, Sitting 136/83 mmHg and Supine 107/66 mmHg Anemia - New vs Chronic - Hgb 9.6 no baseline comparison - He is 8.1 today - SubQ Lovenox for hx/o blood clot - No reports of active bleeding or rectal bleed - Guaiac or stool test - Monitor Pancreatic Cancer - S/p Resection - Being followed by [facility] - Has appointment to see Dr. Cross in AM at 1300 Portal Vein Thrombus - Likely 2/2 Underlying Malignancy - Continue Lovenox Sub E-lytes Abnormality - K 2.6--> 3.4 - Mg 1.7 - 2/2 Duiresis and inadequate intake - Replete and monitor Chronic: HLD HTN Diabetes mellitus type 2 Prostate cancer GERD Plan: He is clinically stable Transfer to [facility] with Tele Continue Lovenox Ischemic protocol Holter monitor at [place] DVT/GI prophylaxis Ambulated as tolerated Resume BB home dose in AM Full code Possible d/c in AM. Met at bedside with patient's permission. She was updated about patient's diagnosis, test results, clinical status and discharge care plan.
[2017-10-21] MEDS: Simvastatin 10 MG Tab PO SCH (20:52)
[2017-10-22] MEDS: Insulin Lispro 100 Unit/ML 3 ML KwikPen SUBCUT SCH ×2 (07:12→11:00)
[2017-10-22] MEDS: LIPASE PO SCH ×2 (07:13→15:09)
[2017-10-22] MEDS: AMYLASE PO SCH ×2 (07:13→15:09)
[2017-10-22] MEDS: PROTEASE PO SCH ×2 (07:13→15:09)
[2017-10-22] MEDS: Ferrous Sulfate 325 MG Tab PO SCH (08:22)
[2017-10-22] MEDS: Pantoprazole 40 MG Tab.CR PO SCH (08:22)
[2017-10-22] MEDS: Furosemide 20 MG Tab PO SCH (08:22)
[2017-10-22] MEDS: Sennosides 8.6 MG Tab PO SCH (08:23)
[2017-10-22] MEDS: Aspirin 81 MG Tab.Chew PO SCH (08:23)
[2017-10-22] MEDS: Enoxaparin 60 MG/0.6 ML Syringe SUBCUT SCH (08:24)
[2017-10-22] MEDS ORDERED: Metoprolol Tartrate 25 MG Tab PO SCH (09:00)
[2017-10-22] MEDS ORDERED: Atenolol 50 MG Tab PO ONE (11:20)
--- NOTE | 2017-10-22 11:27 | PCM.DCSUM1 ---
Discharge Summary - Hospital Course Brief History: 72 year old male with symptomatic A fib with RVR, hypotensive, dizzy with subsequent syncopal episode presents. This is associated with dehydration, weight loss resulting from loss of appetite. He has newly diagnosed pancreatic cancer. He had been seen at the [facility] recently. A clinic visit has been scheduled with Dr Meehan. He was found to have a thrombus in the hepatic vein during his [facility] evaluation. He is on Lovenox which has required adjustment of his home dose as a result of weight loss. The patient has been on Lasix for control of edema/ascites. he has not been on a potassium replacement. He presents with hypokalemia and requires aggressive replacement. Diagnosis: Stroke: No Modified Lawrence Scale: No Symptoms at All Modified Pooja Scale Score: 0 - Discharge Data Discharge Date: 10/22/17 Discharge Disposition: Home, Self-Care 01 Condition: Good - Discharge Diagnosis/Problem(s) (1) Pancreatic cancer SNOMED Code(s): 625964284 ICD Code: C25.9 - MALIGNANT NEOPLASM OF PANCREAS, UNSPECIFIED Status: Chronic Qualifiers: Pancreatic malignancy location: head of pancreas Qualified Code(s): C25.0 - Malignant neoplasm of head of pancreas (2) Dehydration SNOMED Code(s): 19604914 ICD Code: E86.0 - DEHYDRATION Status: Resolved (3) Orthostatic hypotension SNOMED Code(s): 90090407 ICD Code: I95.1 - ORTHOSTATIC HYPOTENSION Status: Resolved (4) Portal vein thrombosis SNOMED Code(s): 46798018 ICD Code: I81 - PORTAL VEIN THROMBOSIS Status: Chronic (5) Atrial fibrillation with RVR SNOMED Code(s): 596884395423050 ICD Code: I48.91 - UNSPECIFIED ATRIAL FIBRILLATION Status: Resolved (6) Hypokalemia due to inadequate potassium intake SNOMED Code(s): 95339605 ICD Code: E87.6 - HYPOKALEMIA Status: Resolved (7) Hypomagnesemia SNOMED Code(s): 904054530 ICD Code: E83.42 - HYPOMAGNESEMIA Status: Resolved (8) Anemia SNOMED Code(s): 489816869 ICD Code: D64.9 - ANEMIA, UNSPECIFIED Status: Chronic Qualifiers: Anemia type: unspecified type Qualified Code(s): D64.9 - Anemia, unspecified (9) Ascites SNOMED Code(s): 471128819 ICD Code: R18.8 - OTHER ASCITES Status: Chronic Qualifiers: Ascites type: malignant Qualified Code(s): R18.0 - Malignant ascites - Patient Summary/Data Operative Procedure(s) Performed: None Complications: None Consults: None Labs Pending at D/C: None Recommended Follow-up Testing/Procedures: None Planned Operative Procedure(s) after DC: None Hospital Course: Patient was primarily admitted for medical management of atrial fibrillation with RVR. We felt this was due to significant volume depletion as evidence by orthostatic hypotension. However with volume resuscitation and rate control medications, he immediately improved. His hospital course was uncomplicated and we made sure his electrolytes were within normal limits prior to discharge. The rest of his chronic medical illness remained stable on the day of discharge. We waited for his 2D echo report as late as 1130 but no report came. Unfortunately, he had to leave for his appointment with Dr. Cross scheduled at 1300 for his cancer care. However, he was informed we will send a copy of his report to his PCP as soon as we receive it. Patient was advised to follow discharge instructions and to check his vitals prior to taking his blood pressure medications. He was further advised to cut down his caffeine intake as he is already on lasix for diuresis. The patient and his at bedside expressed understanding and in agreement with the plans as discussed above. All questions were answered. - Patient Instructions Diet: Heart Healthy Diet, Usual Diet as Tolerated, Diabetic Diet Activity: As Tolerated Driving: Do Not Drive Showering/Bathing: May Shower Notify Provider of: Fever, Increased Pain, Swelling and Redness, Nausea and/or Vomiting Other/Special Instructions: - Please continue all home medications. - Resume routine home activities as tolerated. - Check vitals (BP and HR) and follow parameters before you take your anti-hypertensive medications. Show log on follow up appointment with your PCP in 1-2 week(s) with repeat CBC. - Call or follow up with your PCP for any questions or concerns after discharge. - Come back or seek immediate care should your symptoms persist or get worse - Discharge Plan *PRESCRIPTION DRUG MONITORING PROGRAM REVIEWED*: Not Applicable *COPY OF PRESCRIPTION DRUG MONITORING REPORT IN PATIENT MAR: Not Applicable Home Medications: Home Meds Enoxaparin [Lovenox] 80 mg SQ BID 10/07/17 [History] Ferrous Sulfate [Iron] 325 mg PO DAILY 10/07/17 [History] Insulin Degludec [Tresiba Flextouch U-100] 10 unit SQ ASDIRECTED 10/07/17 [ History] Lipase/Protease/Amylase [Sara DR 3,000 Unit] 1 each PO TID 10/07/17 [History] Pantoprazole [ProTONIX] 20 mg PO BID 10/07/17 [History] Sennosides [Senna] 2 tab PO DAILY 10/07/17 [History] atorvaSTATin [Lipitor] 5 mg PO BEDTIME 10/07/17 [History] Aspirin 81 mg PO DAILY 10/20/17 [History] Atenolol 50 mg PO DAILY #0 10/22/17 [Rx] Furosemide [Lasix] 40 mg PO DAILY #0 10/22/17 [Rx] Patient Handouts: Orthostatic Hypotension, Anemia, Hypomagnesemia, Hypokalemia , Atrial Fibrillation, [id number], Syncope, [id number] Referrals: Geo Quintanilla MD [Primary Care Provider] - - Discharge Summary/Plan Comment DC Time >30 min.: No Discharge Summary/Plan Comment: Discharge to Home - General Info Date of Service: 10/22/17 Admission Dx/Problem (Free Text: Admission Diagnosis/Problem Admission Diagnosis/Problem Hypokalemia Subjective Update: Follow Up Functional Status: Reports: Pain Controlled, Tolerating Diet, Ambulating, Urinating - Review of Systems General: Denies: Fever, Chills HEENT: Reports: No Symptoms Pulmonary: Denies: Shortness of Breath Cardiovascular: Denies: Chest Pain, Palpitations, Dyspnea on Exertion, Orthopnea , Edema, Lightheadedness Gastrointestinal: Denies: Abdominal Pain, Nausea, Vomiting Genitourinary: Reports: No Symptoms Musculoskeletal: Reports: No Symptoms Skin: Reports: No Symptoms Neurological: Denies: Confusion, Difficulty Walking, Weakness, Gait Disturbance Psychiatric: Denies: Depression, Anxiety, Agitation, Hallucinations Systems Review Comment: NO overnight or acute issues. He is doing relatively well. His heart rate remains controlled. He has no complaints. His Mg and K have now resolved. - Patient Data Vitals - Most Recent: Last Vital Signs Temp 37.3 C 10/22/17 07:37 Pulse 91 10/22/17 08:23 Resp 18 10/22/17 07:37 BP 132/94 H 10/22/17 08:23 Pulse Ox 95 10/22/17 07:37 Orthostatic Blood Pressure [ 74/62 Standing] Orthostatic Blood Pressure [ 136/83 Sitting] Orthostatic Blood Pressure [ 107/66 Supine] Weight - Most Recent: 68.447 kg I&O - Last 24 hours: Intake & Output 10/21/17 10/22/17 10/22/17 22:59 06:59 14:59 Intake Total 1708 460 400 Balance 1708 460 400 Lab Results - Last 24 hrs: Laboratory Results - last 24 hr 10/21/17 10/21/17 10/21/17 Range/Units 12:23 17:23 21:15 WBC (4.23-9.07) K/mm3 RBC (4.63-6.08) M/mm3 Hgb (13.7-17.5) gm/L Hct (40.1-51.0) % MCV (79.0-92.2) fl MCH (25.7-32.2) pg MCHC (32.2-35.5) g/dl RDW Std Deviation (35.1-43.9) fL Plt Count (163-337) K/mm3 MPV (9.4-12.3) fl Neut % (Auto) (34.0-67.9) % Lymph % (Auto) (21.8-53.1) % [place] % (Auto) (5.3-12.2) % Eos % (Auto) (0.8-7.0) Baso % (Auto) (0.1-1.2) % Neut # (Auto) (1.78-5.38) K/mm3 Lymph # (Auto) (1.32-3.57) K/mm3 [place] # (Auto) (0.30-0.82) K/mm3 Eos # (Auto) (0.04-0.54) K/mm3 Baso # (Auto) (0.01-0.08) K/mm3 Manual Slide Review Sodium (136-145) mEq/L Potassium (3.5-5.1) mEq/L Chloride (98-107) mEq/L Carbon Dioxide (21-32) mEq/L Anion Gap (5-15) BUN (7-18) mg/dL Creatinine (0.7-1.3) mg/dL Est Cr Clr Drug Dosing mL/min Estimated GFR (MDRD) (>60) mL/min BUN/Creatinine Ratio (14-18) Glucose (83-115) mg/dL POC Glucose 150 H 204 H 167 H (83-110) mg/dL Calcium (8.5-10.1) mg/dL Magnesium (1.8-2.4) mg/dl C-Reactive Protein (<1.0) mg/dL 10/22/17 10/22/17 10/22/17 Range/Units 05:44 05:45 05:45 WBC 4.94 (4.23-9.07) K/mm3 RBC 3.17 L (4.63-6.08) M/mm3 Hgb 8.4 L (13.7-17.5) gm/L Hct 28.7 L (40.1-51.0) % MCV 90.5 (79.0-92.2) fl MCH 26.5 (25.7-32.2) pg MCHC 29.3 L (32.2-35.5) g/dl RDW Std Deviation 55.2 H (35.1-43.9) fL Plt Count 206 (163-337) K/mm3 MPV 9.0 L (9.4-12.3) fl Neut % (Auto) 67.0 (34.0-67.9) % Lymph % (Auto) 21.3 L (21.8-53.1) % [place] % (Auto) 9.7 (5.3-12.2) % Eos % (Auto) 1.8 (0.8-7.0) Baso % (Auto) 0.2 (0.1-1.2) % Neut # (Auto) 3.31 (1.78-5.38) K/mm3 Lymph # (Auto) 1.05 L (1.32-3.57) K/mm3 [place] # (Auto) 0.48 (0.30-0.82) K/mm3 Eos # (Auto) 0.09 (0.04-0.54) K/mm3 Baso # (Auto) 0.01 (0.01-0.08) K/mm3 Manual Slide Review Abnormal smear Sodium 140 (136-145) mEq/L Potassium 4.9 (3.5-5.1) mEq/L Chloride 106 (98-107) mEq/L Carbon Dioxide 30 (21-32) mEq/L Anion Gap 8.9 (5-15) BUN 13 (7-18) mg/dL Creatinine 1.0 (0.7-1.3) mg/dL Est Cr Clr Drug Dosing 65.55 mL/min Estimated GFR (MDRD) > 60 (>60) mL/min BUN/Creatinine Ratio 13.0 L (14-18) Glucose 144 H (83-115) mg/dL POC Glucose 170 H (83-110) mg/dL Calcium 8.0 L (8.5-10.1) mg/dL Magnesium 1.8 (1.8-2.4) mg/dl C-Reactive Protein 4.2 H* (<1.0) mg/dL 10/22/17 Range/Units 07:12 WBC (4.23-9.07) K/mm3 RBC (4.63-6.08) M/mm3 Hgb (13.7-17.5) gm/L Hct (40.1-51.0) % MCV (79.0-92.2) fl MCH (25.7-32.2) pg MCHC (32.2-35.5) g/dl RDW Std Deviation (35.1-43.9) fL Plt Count (163-337) K/mm3 MPV (9.4-12.3) fl Neut % (Auto) (34.0-67.9) % Lymph % (Auto) (21.8-53.1) % [place] % (Auto) (5.3-12.2) % Eos % (Auto) (0.8-7.0) Baso % (Auto) (0.1-1.2) % Neut # (Auto) (1.78-5.38) K/mm3 Lymph # (Auto) (1.32-3.57) K/mm3 [place] # (Auto) (0.30-0.82) K/mm3 Eos # (Auto) (0.04-0.54) K/mm3 Baso # (Auto) (0.01-0.08) K/mm3 Manual Slide Review Sodium (136-145) mEq/L Potassium (3.5-5.1) mEq/L Chloride (98-107) mEq/L Carbon Dioxide (21-32) mEq/L Anion Gap (5-15) BUN (7-18) mg/dL Creatinine (0.7-1.3) mg/dL Est Cr Clr Drug Dosing mL/min Estimated GFR (MDRD) (>60) mL/min BUN/Creatinine Ratio (14-18) Glucose (83-115) mg/dL POC Glucose 148 H (83-110) mg/dL Calcium (8.5-10.1) mg/dL Magnesium (1.8-2.4) mg/dl C-Reactive Protein (<1.0) mg/dL SHALONDA Results - Last 24 hrs: Microbiology 10/21/17 15:47 Stool Occult Blood (SHALONDA) - Final Stool / Feces NEGATIVE OCCULT BLOOD Med Orders - Current: Current Medications Aspirin (Aspirin) 81 mg PO DAILY [facility] Last Admin: 10/22/17 08:23 Dose: 81 mg Atenolol (Tenormin) 50 mg PO ONETIME ONE Stop: 10/22/17 11:21 Enoxaparin Sodium (Lovenox) 60 mg SUBCUT BID [facility] Last Admin: 10/22/17 08:24 Dose: 60 mg Ferrous Sulfate (Ferrous Sulfate) 325 mg PO DAILY [facility] Last Admin: 10/22/17 08:22 Dose: 325 mg Furosemide (Lasix) 40 mg PO DAILY [facility] Last Admin: 10/22/17 08:22 Dose: 40 mg Sodium Chloride (Normal Saline) 1,000 mls @ 125 mls/hr IV ASDIRECTED [facility] Last Admin: 10/21/17 00:55 Dose: 125 mls/hr Insulin Human Lispro (Humalog) 0 unit SUBCUT QIDACANDBED [facility]; Protocol Last Admin: 10/22/17 07:12 Dose: Not Given Metoprolol Tartrate (Lopressor) 5 mg IVPUSH Q6H PRN PRN Reason: HR>100 Metoprolol Tartrate (Lopressor) 25 mg PO Q12H [facility] Last Admin: 10/22/17 08:23 Dose: 25 mg Pantoprazole Sodium (Protonix) 40 mg PO DAILY [facility] Last Admin: 10/22/17 08:22 Dose: 40 mg Lipase/Protease/Amylase [Creon 12, 000 Unit] Ptom 0 each PO TIDMEALS [facility] Last Admin: 10/22/17 07:13 Dose: 1 each Creon 33705 Unit (Caps Ptom) 0 each PO DAILY PRN PRN Reason: SNACK Last Admin: 10/21/17 15:53 Dose: 2 each Senna (Senna) 8.6 mg PO BID [facility] Last Admin: 10/22/17 08:23 Dose: 8.6 mg Simvastatin (Zocor) 5 mg PO BEDTIME [facility] Last Admin: 10/21/17 20:52 Dose: 5 mg Discontinued Medications Enoxaparin Sodium (Lovenox) 75 mg SUBCUT ONETIME ONE Stop: 10/20/17 12:47 Last Admin: 10/20/17 13:48 Dose: 75 mg Diltiazem HCl 125 mg/ Sodium (Chloride) 125 mls @ 10 mls/hr IV ASDIRECTED [facility] Last Admin: 10/21/17 00:54 Dose: 10 mg/hr, 10 mls/hr Potassium Chloride 10 meq/ (Premix) 100 mls @ 100 mls/hr IV ASDIRECTED [facility] Potassium Chloride 10 meq/ (Premix) 100 mls @ 100 mls/hr IV Q1H AMANDA Stop: 10/20/17 17:49 Last Admin: 10/20/17 20:47 Dose: Not Given Potassium Chloride 10 meq/ (Premix) 100 mls @ 100 mls/hr IV NOW STA Stop: 10/20/17 14:51 Last Admin: 10/20/17 14:20 Dose: 100 mls/hr Insulin Glargine (Lantus Solostar) 8 units SUBCUT ONETIME ONE Stop: 10/20/17 12:52 Last Admin: 10/20/17 13:54 Dose: 8 units Metoprolol Tartrate (Lopressor) 25 mg PO Q12H [facility] Last Admin: 10/21/17 04:49 Dose: 25 mg Metoprolol Tartrate (Lopressor) 25 mg PO TID AMANDA Stop: 10/21/17 21:01 Last Admin: 10/21/17 20:54 Dose: 25 mg Pantoprazole Sodium (Protonix) 40 mg PO ONETIME ONE Stop: 10/21/17 12:55 Last Admin: 10/20/17 13:49 Dose: 40 mg Pantoprazole Sodium (Protonix) 40 mg PO DAILY [facility] Last Admin: 10/20/17 13:53 Dose: Not Given Lipase/Protease/Amylase [Sara Perez 3, 000 Unit] 1 Each Ptom 1 each PO TID [facility] Last Admin: 10/21/17 12:21 Dose: 1 each Potassium Chloride (Potassium Chloride Solution) 60 meq PO TID [facility] Last Admin: 10/21/17 20:51 Dose: 60 meq - Exam General: Reports: Alert, Oriented, Cooperative, No Acute Distress HEENT: Reports: Pupils Equal, Pupils Reactive, EOMI, Mucous Membr. Moist/Crescent Neck: Reports: Supple, Trachea Midline, No JVD Lungs: Reports: Normal Respiratory Effort, Decreased Breath Sounds Cardiovascular: Reports: Irregular Rhythm GI/Abdominal Exam: Normal Bowel Sounds, Soft, Non-Tender, No Organomegaly, No Abnormal Bruit, No Mass, Distended (Male) Exam: Deferred Rectal (Males) Exam: Deferred Back Exam: Reports: Normal Inspection, Decreased Range of Motion Extremities: Normal Inspection, Normal Range of Motion, Non-Tender, No Pedal Edema, Normal Capillary Refill Skin: Reports: Warm, Dry, Intact Neurological: Reports: No New Focal Deficit Psy/Mental Status: Reports: Alert, Normal Affect, Normal Mood
== END 2017-10-22 12:20 | disposition home or self-care (01) | DRG 308 ==
LOC: JD.ED 08:51 → JD.ICU 14:34
PROVIDERS: ADMIT Internal Medicine Cardiovascular Disease; ATTEND Internal Medicine Cardiovascular Disease
DX: R55 Syncope and collapse (principal); I48.0 Paroxysmal atrial fibrillation; I82.0 Budd-Chiari syndrome; C25.9 Malignant neoplasm of pancreas, unspecified; C78.7 Secondary malignant neoplasm of liver and intrahepatic bile duct; R18.0 Malignant ascites; C25.0 Malignant neoplasm of head of pancreas; E87.6 Hypokalemia; E83.42 Hypomagnesemia; E78.5 Hyperlipidemia, unspecified; I95.1 Orthostatic hypotension; E11.9 Type 2 diabetes mellitus without complications; D64.9 Anemia, unspecified; E78.00 Pure hypercholesterolemia, unspecified; I50.9 Heart failure, unspecified; I11.0 Hypertensive heart disease with heart failure; H54.7 Unspecified visual loss; K21.9 Gastro-esophageal reflux disease without esophagitis; S01.511A Laceration without foreign body of lip, initial encounter; W18.30XA Fall on same level, unspecified, initial encounter; Z79.01 Long term (current) use of anticoagulants; Z88.0 Allergy status to penicillin; R53.81 Other malaise; R53.83 Other fatigue; R53.1 Weakness; R42 Dizziness and giddiness; Z79.82 Long term (current) use of aspirin; Z79.4 Long term (current) use of insulin; Z79.899 Other long term (current) drug therapy; Z85.46 Personal history of malignant neoplasm of prostate; Z96.649 Presence of unspecified artificial hip joint; E86.0 Dehydration; R63.4 Abnormal weight loss; Z68.20 Body mass index [BMI] 20.0-20.9, adult; Z85.89 Personal history of malignant neoplasm of other organs and systems; Z87.891 Personal history of nicotine dependence; E86.9 Volume depletion, unspecified
CPT/HCPCS: 36415; 71045; 80053; 82553; 83735; 83880; 84484; 85007; 85027; 85610; 86140; 93005; 96365; 96366; 96368; 96372; 99285; A9270; J1650; J3480; J3490; J7030; J7040; 71046; 71046-26; 80048; 82272; 82962; 85025; 93010; 93306; J1815

== ENCOUNTER 2017-11-16 08:54 | Emergency (ER) | payer MEDICARE, BC ==
--- NOTE | 2017-11-16 09:55 | EDM.PDOC ---
ED HPI GENERAL MEDICAL PROBLEM - General Chief Complaint: General Stated Complaint: WEAK AND NOSE BLEED Time Seen by Provider: 11/16/17 09:07 Source of Information: Reports: Patient, Family (), RN Notes Reviewed History Limitations: Reports: No Limitations - History of Present Illness INITIAL COMMENTS - FREE TEXT/NARRATIVE: The patient states that he was diagnosed with pancreatic cancer this past August,. He does not know the stage, but he has a history of cirrhosis and ascites , for which he takes Lasix and potassium chloride. His Oncologist is Dr. Cross. The patient underwent his first dosage of chemotherapy this past Friday, 11/12 - neither the patient nor his recall the name of the chemotherapeutic agent, but based on their description of it as a monotherapy, it is likely gemcitabine. The patient's states that the patient has had decreased oral intake for months. He has been generally weak since yesterday. He had a low-grade epistaxis last night, which stopped on its own this morning. The patient does not have a history of epistaxis, although he is on Xarelto for paroxysmal atrial fibrillation and hepatic vein thrombosis. No recent fever, chills, cough, chest pain, palpitations, abdominal pain, nausea , vomiting, constipation, or diarrhea. The patient's states that the patient has not had any urine output since yesterday afternoon. The patient also has a history of prostate cancer, status post brachytherapy in 2003, but he did not undergo a prostatectomy. The patient has diabetes and checks his blood glucose once a day. His blood glucose is normally 110, and has not changed recently. The patient's PCP is Dr. Quintanilla. - Related Data Allergies Allergy/AdvReac Type Severity Reaction Status Date / Time Penicillins Allergy Hives Verified 11/16/17 09:10 Home Meds: Home Meds Aspirin [Halfprin] 81 mg PO DAILY 11/16/17 [History] Atenolol 50 mg PO DAILY 11/16/17 [History] Ferrous Sulfate 325 mg PO DAILY 11/16/17 [History] Furosemide [Lasix] 40 mg PO DAILY 11/16/17 [History] Ondansetron [Zofran ODT] 8 mg PO Q6H PRN 11/16/17 [History] Potassium Chloride [Klor-Con M20] 20 meq PO DAILY 11/16/17 [History] Promethazine [Phenergan] 25 mg TOP Q6HR PRN 11/16/17 [History] Rivaroxaban [Xarelto] 20 mg PO DAILY 11/16/17 [History] Sennosides/Docusate Sodium [Senna-Docusate Sodium Tablet] 1 tab PO BID 11/16/17 [History] atorvaSTATin [Lipitor] 5 mg PO DAILY 11/16/17 [History] Past Medical History HEENT History: Reports: Impaired Vision Cardiovascular History: Reports: High Cholesterol, Hypertension Gastrointestinal History: Reports: Cirrhosis, GERD, Other (See Below) (Hepatic vein thrombosis, ascites) Musculoskeletal History: Reports: Arthritis Endocrine/Metabolic History: Reports: Diabetes, Type II Hematologic History: Reports: Anticoagulation Therapy (Xarelto) Oncologic (Cancer) History: Reports: Pancreatic, Prostate - Past Surgical History Cardiovascular Surgical History: Reports: Vascular Surgery (Right Port-A-Cath) GI Surgical History: Reports: Abdominal paracentesis (x 1 or 2), Cholecystectomy Male Surgical History: Reports: Other (See Below) (Prostate brachytherapy) Musculoskeletal Surgical History: Reports: Hip Replacement (right) Social & Family History - Family History Family Medical History: Noncontributory - Tobacco Use Smoking Status *Q: Former Smoker Years of Tobacco use: 5 Packs/Tins Daily: 1 Month/Year Tobacco Last Used: Quit Feb 1991 - Caffeine Use Caffeine Use: Reports: None - Alcohol Use Alcohol Use History: No - Recreational Drug Use Recreational Drug Use: No - Living Situation & Occupation Living situation: Reports: , with Spouse Occupation: Retired ED ROS GENERAL - Review of Systems Review Of Systems: ROS reveals no pertinent complaints other than HPI. ED EXAM, GENERAL - Physical Exam Exam: See Below Exam Limited By: No Limitations General Appearance: Alert, No Apparent Distress, Thin, Other (Appears generally weak) Eye Exam: Bilateral Eye: EOMI, Normal Inspection Ears: Normal External Exam, Hearing Grossly Normal Nose: Normal Inspection, Normal Mucosa, No Blood Throat/Mouth: Normal Inspection, Normal Lips, Normal Voice, No Airway Compromise Head: Atraumatic, Normocephalic Neck: Normal Inspection, Full Range of Motion. No: Lymphadenopathy (L), Lymphadenopathy (R) Respiratory/Chest: No Respiratory Distress, Lungs Clear, Normal Breath Sounds, No Accessory Muscle Use Cardiovascular: Normal Peripheral Pulses, Regular Rate, Rhythm, No Edema, No Gallop, No JVD, No Murmur, No Rub Peripheral Pulses: 4+: Radial (L), Radial (R) GI/Abdominal: Normal Bowel Sounds, Soft, No Organomegaly, No Abnormal Bruit, No Mass, Distended (mild), Tender (mild, generalized) (Male) Exam: Deferred Rectal (Males) Exam: Deferred Back Exam: Normal Inspection, Full Range of Motion, NT Extremities: Normal Inspection, Normal Range of Motion, No Pedal Edema, Normal Capillary Refill Neurological: Alert, Oriented, Normal Cognition, No Motor/Sensory Deficits ( Generally weak. No focal neurologic deficits.) Psychiatric: Normal Affect Skin Exam: Warm, Dry, Intact, Normal Color, No Rash Course - Vital Signs Last Recorded V/S: Last Vital Signs Temp 36.4 C 11/16/17 09:03 Pulse 80 11/16/17 09:03 Resp 20 11/16/17 09:03 BP 95/44 L 11/16/17 09:03 Pulse Ox 100 11/16/17 09:03 Orthostatic Blood Pressure [ 81/53 Standing] Orthostatic Blood Pressure [ 84/67 Sitting] Orthostatic Blood Pressure [ 100/60 Supine] - Orders/Labs/Meds Orders: Active Orders 24 hr Category Date Time Status Bladder Scan [RC] ASDIRECTED Care 11/16/17 09:54 Active Mancini Catheter Insertion [Insert Urinary Catheter] [OM. Care 11/16/17 10:30 Ordered PC] Q24H Orthostatic Vital Signs [RC] STAT Care 11/16/17 09:54 Active Urinary Catheter Assessment [RC] ASDIRECTED Care 11/16/17 10:25 Active CULTURE BLOOD [BC] Stat Lab 11/16/17 09:54 Ordered CULTURE BLOOD [BC] Stat Lab 11/16/17 10:10 Received Sodium Chloride 0.9% [Normal Saline] 1,000 ml Med 11/16/17 14:00 Active IV ASDIRECTED Blood Culture x2 Reflex Set [OM.PC] Stat Oth 11/16/17 09:54 Ordered Medication Orders Sodium Chloride (Normal Saline) 1,000 mls @ 250 mls/hr IV ASDIRECTED AMANDA Last Admin: 11/16/17 14:47 Dose: 250 mls/hr Labs: Laboratory Tests 11/16/17 11/16/17 11/16/17 Range/Units 09:36 09:36 09:36 WBC 12.67 H (4.23-9.07) K/mm3 RBC 3.58 L (4.63-6.08) M/mm3 Hgb 9.6 L (13.7-17.5) gm/L Hct 29.6 L (40.1-51.0) % MCV 82.7 (79.0-92.2) fl MCH 26.8 (25.7-32.2) pg MCHC 32.4 (32.2-35.5) g/dl RDW Std Deviation 56.3 H (35.1-43.9) fL Plt Count 92 L (163-337) K/mm3 MPV 9.4 (9.4-12.3) fl Neutrophils % (Manual) 96 H (40-60) % Band Neutrophils % 0 (0-10) % Lymphocytes % (Manual) 3 L (20-40) % Atypical Lymphs % 0 % Monocytes % (Manual) 1 L (2-10) % Eosinophils % (Manual) 0 L (0.8-7.0) % Basophils % (Manual) 0 L (0.2-1.2) Platelet Estimate Adequate Poikilocytosis 1+ slight Anisocytosis 1+ slight RBC Morph Comment plate hanger Sodium 126 L (136-145) mEq/L Potassium 6.1 H (3.5-5.1) mEq/L Chloride 95 L (98-107) mEq/L Carbon Dioxide 17 L (21-32) mEq/L Anion Gap 20.1 H (5-15) BUN 102 H (7-18) mg/dL Creatinine 5.2 H (0.7-1.3) mg/dL Est Cr Clr Drug Dosing 10.87 mL/min Estimated GFR (MDRD) 11 (>60) mL/min BUN/Creatinine Ratio 19.6 H (14-18) Glucose 146 H (83-115) mg/dL Lactic Acid 2.5 H (0.4-2.0) mmol/L Calcium 8.5 (8.5-10.1) mg/dL Magnesium 2.4 (1.8-2.4) mg/dl Total Bilirubin 1.6 H (0.2-1.0) mg/dL AST 53 H (15-37) U/L ALT 54 (16-63) U/L Alkaline Phosphatase 250 H (46-116) U/L Total Protein 6.1 L (6.4-8.2) g/dl Albumin 1.7 L (3.4-5.0) g/dl Globulin 4.4 gm/dL Albumin/Globulin Ratio 0.4 L (1-2) Urine Color (Yellow) Urine Appearance (Clear) Urine pH (5.0-8.0) Ur Specific [place] (1.005-1.030) Urine Protein (Negative) Urine Glucose (UA) (Negative) Urine Ketones (Negative) Urine Occult Blood (Negative) Urine Nitrite (Negative) Urine Bilirubin (Negative) Urine Urobilinogen (0.2-1.0) Ur Leukocyte Esterase (Negative) Urine RBC (0-5) /hpf Urine WBC (0-5) /hpf Ur Epithelial Cells (0-5) /hpf Urine Bacteria (FEW) /hpf Urine Mucus (FEW) /hpf 11/16/17 Range/Units 10:30 WBC (4.23-9.07) K/mm3 RBC (4.63-6.08) M/mm3 Hgb (13.7-17.5) gm/L Hct (40.1-51.0) % MCV (79.0-92.2) fl MCH (25.7-32.2) pg MCHC (32.2-35.5) g/dl RDW Std Deviation (35.1-43.9) fL Plt Count (163-337) K/mm3 MPV (9.4-12.3) fl Neutrophils % (Manual) (40-60) % Band Neutrophils % (0-10) % Lymphocytes % (Manual) (20-40) % Atypical Lymphs % % Monocytes % (Manual) (2-10) % Eosinophils % (Manual) (0.8-7.0) % Basophils % (Manual) (0.2-1.2) Platelet Estimate Poikilocytosis Anisocytosis RBC Morph Comment Sodium (136-145) mEq/L Potassium (3.5-5.1) mEq/L Chloride (98-107) mEq/L Carbon Dioxide (21-32) mEq/L Anion Gap (5-15) BUN (7-18) mg/dL Creatinine (0.7-1.3) mg/dL Est Cr Clr Drug Dosing mL/min Estimated GFR (MDRD) (>60) mL/min BUN/Creatinine Ratio (-18) Glucose (83-115) mg/dL Lactic Acid (0.4-2.0) mmol/L Calcium (8.5-10.1) mg/dL Magnesium (1.8-2.4) mg/dl Total Bilirubin (0.2-1.0) mg/dL AST (15-37) U/L ALT (16-63) U/L Alkaline Phosphatase (46-116) U/L Total Protein (6.4-8.2) g/dl Albumin (3.4-5.0) g/dl Globulin gm/dL Albumin/Globulin Ratio (1-2) Urine Color Dark yellow (Yellow) Urine Appearance Clear (Clear) Urine pH 5.5 (5.0-8.0) Ur Specific [place] 1.025 (1.005-1.030) Urine Protein Negative (Negative) Urine Glucose (UA) Negative (Negative) Urine Ketones Negative (Negative) Urine Occult Blood Negative (Negative) Urine Nitrite Negative (Negative) Urine Bilirubin 1+ H (Negative) Urine Urobilinogen 0.2 (0.2-1.0) Ur Leukocyte Esterase Negative (Negative) Urine RBC Not seen (0-5) /hpf Urine WBC 0-5 (0-5) /hpf Ur Epithelial Cells 0-5 (0-5) /hpf Urine Bacteria Not seen (FEW) /hpf Urine Mucus Not seen (FEW) /hpf Meds: Medications Generic Name Dose Route Start Last Admin Trade Name Freq PRN Reason Stop Dose Admin Sodium Chloride 1,000 mls @ 250 mls/hr 11/16/17 14:00 11/16/17 14:47 Normal Saline IV 250 mls/hr ASDIRECTED AMANDA Administration Discontinued Medications Generic Name Dose Route Start Last Admin Trade Name Freq PRN Reason Stop Dose Admin Sodium Chloride 1,000 mls @ 999 mls/hr 11/16/17 10:23 11/16/17 10:39 Normal Saline IV 11/16/17 11:23 999 mls/hr ONETIME ONE Administration Lidocaine HCl 10 ml 11/16/17 14:42 11/16/17 14:49 Xylocaine 2% Jelly MUCMEM 11/16/17 14:43 10 ml ONETIME ONE Administration Sodium Polystyrene Sulfonate 15 gm 11/16/17 13:17 11/16/17 14:48 Kayexalate PO 11/16/17 13:18 15 gm ONETIME ONE Administration - Re-Assessments/Exams Free Text/Narrative Re-Assessment/Exam: 11/16/17 10:24 The patient's blood pressure does not quite meet criterion for orthostasis, however, given that he is hypotensive, I have ordered 1 L normal saline bolus. Notified that the patient's postvoid bladder scan revealed 951 ml. I have ordered a Mancini to leg bag. 11/16/17 13:23 There was a significant delay in getting back to the patient due to my managing a critically ill patient with a subdural hematoma, who required intubation and transfer. This was explained to the patient and his - they were initially upset, but appear to understand the situation. The patient has numerous lab abnormalities, all likely stemming from renal failure, including a BUN/Cr of 102/5.2, sodium of 126, potassium 6.1, bicarbonate 17, with an anion gap of 20.1. His lactic acid is elevated at 2.5. His electrolytes and renal function were normal on 10/22/2017. His acute renal failure is likely due to his use of Lasix as treatment for ascites, although his urinary retention could have contributed, as well. While it is likely that the patient's renal failure and electrolyte abnormalities will significantly improve with IV hydration and relief of the urologic obstruction, it is possible that will not, and the patient would be better served if he were under the care of a Instruction Librarian, therefore he requires transfer to [facility]. The patient and his prefer seeing [facility]. 11/16/17 13:41 Case discussed with [facility] at 13:25. Case then discussed with Dr. Merritt, Hospitalist at [facility], at 13:35. He accepted the patient to telemetry. 11/16/17 14:05 Due to a lack of ambulance crews, there will be a significant wait, likely beyond 18:00, before the patient can be transferred to [facility]. 11/16/17 14:39 Notified that [facility] will be coming from [facility] to collect the patient. They will likey get here around 16:00 MDT. 11/16/17 15:20 Notified by Niurka PORTER that when the 14 Fr catheter was initially placed, it drained only about 30 mL of urine before stopping. They were able to flush it, but there was no return. The bladder scan is indicating over 1000 mL of urine in the bladder. Niurka exchanged the catheter to a 18 Fr, with the exact same problem. I suspect that the patient may have a flexed bladder, causing the catheter to kink and not drain. If that is the case, a smaller catheter will have a relatively stiffer wall and may resist kinking. At this time, Niurka will try to straight catheterize the patient to drain the bladder, then place a 8 Qat[place] catheter. 11/16/17 15:41 Notified by Niurka PORTER that she attempted to straight catheter the patient, however, there was no urine return. She then placed the 8 [place] catheter. She was able to advance the catheter all the way, and there was no resistance in inflating the balloon, however, there is still no urine return. The etiology of this is unclear. Since the ambulance to transfer the patient to [facility] will be here within a few minutes, there is not enough time to attempt a suprapubic catheter by ultrasound guidance. I'm going to recommend that the patient be evaluated by Urology when he gets to [facility]. 11/16/17 15:[address] Merritt about the urologic situation, at 15:45. He will consult Urology. Departure - Departure Time of Disposition: 13:42 Disposition: DC/Tfer to Acute Hospital 02 Condition: Serious Clinical Impression: Acute renal failure, Lactic acidosis, Hyperkalemia, Hyponatremia, Hyperglycemia due to type 2 diabetes mellitus, Thrombocytopenia, Urine retention , Hypotension Anemia Qualifiers: Anemia type: unspecified type Qualified Code(s): D64.9 - Anemia, unspecified Pancreatic cancer Qualifiers: Pancreatic malignancy location: head of pancreas Qualified Code(s): C25.0 - Malignant neoplasm of head of pancreas - Discharge Information *PRESCRIPTION DRUG MONITORING PROGRAM REVIEWED*: Not Applicable *COPY OF PRESCRIPTION DRUG MONITORING REPORT IN PATIENT MAR: Not Applicable Referrals: Geo Quintanilla MD [Primary Care Provider] - Calixto Cross MD [Ordering Only Provider] - - My Orders Last 24 Hours: My Active Orders 11/16/17 09:54 Bladder Scan [RC] ASDIRECTED Orthostatic Vital Signs [RC] STAT CULTURE BLOOD [BC] Stat Blood Culture x2 Reflex Set [OM.PC] Stat 11/16/17 10:10 CULTURE BLOOD [BC] Stat 11/16/17 10:25 Urinary Catheter Assessment [RC] ASDIRECTED 11/16/17 10:30 Mancini Catheter Insertion [Insert Urinary Catheter] [OM.PC] Q24H 11/16/17 14:00 Sodium Chloride 0.9% [Normal Saline] 1,000 ml IV ASDIRECTED - Assessment/Plan Last 24 Hours: My Active Orders 11/16/17 09:54 Bladder Scan [RC] ASDIRECTED Orthostatic Vital Signs [RC] STAT CULTURE BLOOD [BC] Stat Blood Culture x2 Reflex Set [OM.PC] Stat 11/16/17 10:10 CULTURE BLOOD [BC] Stat 11/16/17 10:25 Urinary Catheter Assessment [RC] ASDIRECTED 11/16/17 10:30 Mancini Catheter Insertion [Insert Urinary Catheter] [OM.PC] Q24H 11/16/17 14:00 Sodium Chloride 0.9% [Normal Saline] 1,000 ml IV ASDIRECTED
[2017-11-16] MEDS ORDERED: Sodium Chloride 0.9% 1,000 ML IV ONE (10:23)
[2017-11-16] MEDS ORDERED: Sodium Polystyrene Sulfonate 15 GM/60 ML Susp 60 ML Bot PO ONE (13:17)
[2017-11-16] MEDS ORDERED: Sodium Chloride 0.9% 1,000 ML IV SCH (14:00)
[2017-11-16] MEDS ORDERED: Lidocaine 2% Jelly 10 ML Urojet MUCMEM ONE (14:42)
== END 2017-11-16 16:30 ==
LOC: JD.ED 08:54
DX: N17.9 Acute kidney failure, unspecified (principal); E11.65 Type 2 diabetes mellitus with hyperglycemia; I95.9 Hypotension, unspecified; C25.0 Malignant neoplasm of head of pancreas; D69.6 Thrombocytopenia, unspecified; D64.9 Anemia, unspecified; E87.2 Acidosis; E87.5 Hyperkalemia; E87.1 Hypo-osmolality and hyponatremia; I10 Essential (primary) hypertension; E78.00 Pure hypercholesterolemia, unspecified; K21.9 Gastro-esophageal reflux disease without esophagitis; Z79.01 Long term (current) use of anticoagulants; Z79.82 Long term (current) use of aspirin; Z79.899 Other long term (current) drug therapy
CPT/HCPCS: 36415; 51702; 51798; 80053; 81001; 83605; 83735; 85007; 85027; 87040; 96360; 96361; 99285; J7040; A9270-GY